=== PATIENT | male | born 1935 | race Caucasian/White ===

== ENCOUNTER 2019-08-30 12:55 | Outpatient (CLI) | payer MEDICARE, OTHER, SELFPAY ==
[2019-08-30 14:17] LABS: Basophils % 0.6 %; Eosinophils # 0.2 10^3/uL (0.0-0.8); Eosinophils % 2.6 %; Hematocrit 32.1 % (42.0-52.0); Hemoglobin 10.3 g/dL (11.7-16.6); Lymphocytes # 2.4 10^3/uL (0.8-4.8); Lymphocytes % 34.4 %; Mean Corpuscular HGB Conc 32.1 g/dL (30.0-36.0); Mean Corpuscular Hemoglobin 32.2 pg (28.0-34.0); Mean Corpuscular Volume 100.3 fL (80-94); Mean Platelet Volume 11.8 fL (7.4-10.4); Monocytes # 0.9 10^3/uL (0.2-0.9); Monocytes % 12.2 %; Neutrophils # 3.4 10^3/uL (1.8-7.7); Neutrophils % 48.6 %; Nucleated Red Blood Cells % 0 %; Platelet Count 241 10^3/cmm (130-400); Red Cell Distribution Width 12.3 % (12.1-15.1)
[2019-08-30 19:59] LABS: Alanine Aminotransferase 22 U/L (0-41); Albumin Level 4.6 g/dL (3.5-5.2); Alkaline Phosphatase 112 IU/L (40-130); Anion Gap 14.4 (5-19); Aspartate Amino Transferase 25 U/L (0-40); Blood Urea Nitrogen 50 mg/dL (8-23); Calcium 9.8 mg/dL (8.5-10.5); Carbon Dioxide 31 mmol/L (22-29); Chloride 96 mmol/L (98-107); Globulin 3.4 g/dL (1.3-4.6); Glucose 203 mg/dL (65-115); Potassium 4.4 mmol/L (3.5-5.1); Sodium 137 mmol/L (136-145); Total Bilirubin 0.2 mg/dL (0.15-1.2)
== END 2019-08-30 12:56 | disposition home or self-care (01) ==
LOC: ONCMED 12:58
PROVIDERS: Family Provider Internal Medicine; PCP Internal Medicine; Visit Provider Internal Medicine Hematology & Oncology
DX: D64.9 Anemia, unspecified (principal)
CPT/HCPCS: 36415; 80053; 85025

== ENCOUNTER 2019-08-30 12:59 | Outpatient (CLI) | payer MEDICARE, OTHER, SELFPAY ==
[2019-08-30 14:05] LABS: Creatinine Urine, Random 39 mg/dL (39-259)
[2019-08-30 14:06] LABS: Microalbum Creatinine Ratio Ur 26 mg/dL (0-20); Microalbumin Random Urine 1 ug/dL (0-20)
[2019-08-30 19:58] LABS: Albumin Level 4.5 g/dL (3.5-5.2); Anion Gap 16.3 (5-19); Blood Urea Nitrogen 50 mg/dL (8-23); Carbon Dioxide 30 mmol/L (22-29); Chloride 95 mmol/L (98-107); Glucose 197 mg/dL (65-115); Phosphorus 3.5 mg/dL (2.5-4.5); Potassium 4.3 mmol/L (3.5-5.1); Sodium 137 mmol/L (136-145)
[2019-08-30 20:35] LABS: Calcium 9.9 mg/dL (8.5-10.5); Parathyroid Hormone 77.7 pg/mL (15-65)
== END 2019-08-30 13:00 | disposition home or self-care (01) ==
LOC: LAB 13:01
PROVIDERS: Family Provider Internal Medicine; PCP Internal Medicine; Visit Provider Internal Medicine Nephrology
DX: N18.3 Chronic kidney disease, stage 3 (moderate) (principal)
CPT/HCPCS: 36415; 80069; 82044; 82310; 83970

== ENCOUNTER 2019-08-31 10:00 | Outpatient (CLI) | payer MEDICARE, OTHER, SELFPAY ==
--- NOTE | 2019-08-31 10:45 | ONC FU_ITS ---
Dr. Horne follow up note Patient: Enrique Monk Unit #: [id number]: 1935 Dicatated By: Christa Horne M.D.Date of Visit:Aug 31, 2019 Onc Med Follow-up/Prog Note History of Present Illness: This is an 83 year-old man with moderately severe anemia. He has multiple medical illnesses including hypertension, dyslipidemia, chronic kidney disease, coronary artery disease, and peripheral neuropathy. He also has chronic back pain, for which he has an implanted pain pump. In January 2016 he was hospitalized here with an acute ST elevation myocardial infarction. He developed acute renal failure with it, and he also had acute pancreatitis. He had CT evidence of a large pancreatic pseudocyst. He was transferred to the [facility] where he did undergo drainage of the pseudocyst and placement of a stent. He was readmitted to the hospital here for possible angina equivalent on 02/26/2016. A sestamibi Lexiscan showed no evidence of acute cardiac ischemia, and as such his further cardiac evaluation was deferred to outpatient management. However, in the meantime, his laboratory studies did show that he was significantly anemic with his initial CBC showing hemoglobin 7.9 g and hematocrit 24.6%. The red cell indices were slightly macrocytic. The white blood cell count was slightly elevated at 11,400, but that was significantly down compared to studies in January. The platelet count was normal at 328,000. Comprehensive metabolic profile showed elevated BUN/creatinine creatinine at 31 and 2.2 mg/dL. Albumin was low at 2.4 g/dL. Liver enzymes were normal. His B12 level was high at 1881 pg/mL. Serum iron studies showed low transferrin saturation of 12%. Ferritin was high normal at 376 ng/mL. Serum protein electrophoresis showed hypoalbuminemia and decreased total protein. There was no monoclonal protein detected. He did receive a transfusion of 1 unit of packed red blood cells on 02/27/2016. initially on 03/10/2016. CBC at that time showed hemoglobin 8.9 g with white count 12,700 and platelet count 335,000. The uncorrected reticulocyte count was 2.3%. Sedimentation rate was greater than 120 mm/hour. CRP also was elevated at 9.650 mg/dL. Chem profile showed BUN elevated at 35 mg/dL with creatinine 2.6 mg/dL, and those had increased compared to 2 weeks earlier. Alkaline phosphatase was slightly elevated 135/117 IU/L, but with normal bilirubin of 0.3 mg/dL. The other liver enzymes were normal. The serum iron was low at 22 mcg/dL with transferrin saturation 6.4%. Ferritin elevated at 483 ng/mL. A repeat protein electrophoresis showed increased alpha 1 globulin, consistent with acute phase reactive process. He was readmitted to the hospital on 03/27/2016 with acute renal failure. CT abdomen/pelvis at that time showed evidence of new acute pancolitis and loculated enhancing gas and fluid collection along the medial caudal margin of the pancreatic head. There was evidence of new acute right L3 transverse process fracture. He was found to have Clostridium difficile colitis, treated with metronidazole. He was admitted again on 04/27/2016 with persistent diarrhea and stool positive for C. difficile. He was then treated with oral vancomycin. He was then given parenteral iron replacement with infusions of Injectafer on 05/24/2016 and again on 05/31/2016. A repeat CT scan performed 05/26/16 showed new pneumobilia and air within the gallbladder lumen since 03/26/2016. There was residual but improving changes of pancreatitis and pseudocyst formation. The gallbladder was mildly hydropic with diffusely thickened wall, likely on the basis of the patient's known chronic pancreatic disease and adjacent inflammatory process. He returned to the [facility] on 06/22/2016 for removal of his pancreatic stent. A repeat CT of the abdomen/pelvis on 07/27/2016 showed decrease in size of residual pancreatic head fluid collection. There was no radiographic evidence of residual pancreatitis. There was resolved pneumobilia and gallbladder distention since 05/26/2016. His CBC at that time still showed moderately severe anemia with hemoglobin 9.4 g. The red cell indices were borderline macrocytic. His transferrin saturation was 21%. Sedimentation rate was still significantly elevated at 89 mm/hour. Came for follow-up, denies any specific complaints, no fever or chills, no nausea or vomiting, no diarrhea constipation, no jaundice, no melena hematochezia. No palpitation or shortness of breath . Medications: Acidophilus 1 Tablet Oral daily, ClonazePAM 1 Tablet Oral at bedtime, Flomax 1 (0.4 mg) Capsule Oral daily, Lasix 1 (40 mg) Tablet Oral b.i.d., Lopid 1 (600 mg) Tablet Oral b.i.d., Morphine Sulfate Microinfusion Injection Take as Directed, Nitroglycerin Tablet, sublingual Sublingual PRN, OxyCODONE HCl 1 Tablet (of 10 mg) Oral four times a day PRN, Proscar 1 (5 mg) Tablet Oral at bedtime, Xanax 1 (0.5 mg) Tablet Oral t.i.d. PRN, Zofran 1 (4 mg) Tablet Oral t.i.d. Allergies: Amitriptyline HCl, Neurontin, and TraZODone HCl. Review of Systems: Review of Systems is not available for this patient. Vital Signs: Performed on Aug 31, 2019 10:19 Height - 69.00 in Weight - 179.8 lbs (HIGH) BSA - 1.97 sq.m BMI - 26.55 Temperature - 98.4 F Pulse - 87 /min Respiration - 26 /min BP - 154/76 mm(hg) (HIGH) O2 Sat - 97 % Pain - 10 Performance Status: 1 - No physically strenuous activity, but ambulatory and able to carry out light or sedentary work (e.g. office work, light house work). (ECOG) Physical Examination: ENMT - No oral exudates, ulcers, masses, thrush or mucositis. Oropharynx clear. Tongue normal, Respiratory - Lungs are clear to auscultation without rhonchi or wheezing, Cardiovascular - Regular rate and rhythm of heart, Abdomen - Non-tender, non-distended, . Good bowel sounds. No guarding or rebound tenderness. No pulsatile masses, Extremities - no edema. Lab/Imaging: Test performed on Aug 30, 2019 08:45 Sodium 137 mmol/L Potassium 4.4 mmol/L Chloride 96 mmol/L CO2 31 mmol/L Anion Gap 14.4 BUN 50 mg/dL Creatinine 2.0 mg/dL Cr Clearance (Est) 31.7400 mL/min Glucose 203 mg/dL Calcium 9.8 mg/dL Protein, Total 8.0 g/dL Albumin 4.6 g/dL Globulin 3.4 g/dL Bilirubin, Total 0.2 mg/dL ALT (SGPT) 22 U/L AST (SGOT) 25 U/L Alkaline Phosphatase 112 IU/L WBC 7.0 10 3/uL RBC 3.20 10 6/uL HGB 10.3 g/dL HCT 32.1 % MCV 100.3 fL MCH 32.2 pg MCHC 32.1 g/dL RDW 12.3 % Platelet Count 241 10 3/cmm MPV 11.8 fL Neutrophils 3.4 10 3/uL Lymphocytes 2.4 10 3/uL Monocytes 0.9 10 3/uL Eosinophils 0.2 10 3/uL Basophils 0.0 10 3/uL Neutrophil % 48.6 % Lymphocyte % 34.4 % Monocyte % 12.2 % Eosinophil % 2.6 % Basophils % 0.6 % Test performed on Apr 20, 2019 08:47 Ferritin 840.0 ng/ml Iron 64 ug/dL % Iron Saturation 22.2 % Impression: 1. Patient with moderately severe anemia. Some component appeared to be due to iron deficiency. Some component of chronic disease anemia also was felt to be likely. Other bone marrow pathology was not excluded. 2. He developed acute renal failure and pancreatitis in association with acute ST elevation myocardial infarction in January 2016. 3. He had associated pancreatic pseudocyst, requiring percutaneous drainage and stent placement. 4. His further management was complicated by Clostridium difficile colitis, but that has improved clinically following treatment with oral vancomycin. His other medical illnesses include: 5. Hypertension. 6. Dyslipidemia. 7. GERD. 8. History of paroxysmal atrial fibrillation. 9. Benign prosthetic hypertrophy with urinary retention. 10. Chronic back pain. 11. Peripheral neuropathy. 12. He has a prior history of anemia, reportedly in association with Ducor Spotted Fever. He apparently was given parenteral iron at that time. He completed parenteral iron replacement with infusions of Injectafer on 05/24/2016 and on 05/31/2016. He has had gradual recovery from the pancreatitis and C. difficile colitis. His followup CT scan on 07/27/2016 did show further improvement, and he has continued to show gradual improvement in his performance status. Despite the parenteral iron replacement, his follow-up blood counts have continued to show moderately severe anemia, and he continues to have significantly elevated sedimentation rate. The cause for this remains uncertain. Plan: Discussed with patient regarding his labs white blood count 7 hormone 10.3 crit 32.1 platelets 241,000 CMP within normal limit except creatinine 2 compared to 2.7 in March 2019 Clinically, patient is doing well, now with well compensated mild/moderate anemia. Which appears multifactorial including due to renal insufficiency, anemia of chronic disease, considering his age underlying myelodysplasia cannot be ruled out or iron deficiency. We will continue to monitor and he will return to clinic in 4 months with CBC and iron studies, if hemoglobin drops and there is evidence of iron deficiency may consider iron supplements otherwise continue to monitor as patient is not symptomatic due to mild/moderate but stable anemia. Signed By: Christa Horne M.D. <<Signature on File>>
== END 2019-08-31 10:01 | disposition home or self-care (01) ==
LOC: ONCMED 10:07
PROVIDERS: Family Provider Internal Medicine; PCP Internal Medicine; Visit Provider Internal Medicine Hematology & Oncology
DX: D64.9 Anemia, unspecified (principal); I10 Essential (primary) hypertension; E78.5 Hyperlipidemia, unspecified; N17.9 Acute kidney failure, unspecified; I25.10 Atherosclerotic heart disease of native coronary artery without angina pectoris; G62.9 Polyneuropathy, unspecified; G89.29 Other chronic pain; M54.9 Dorsalgia, unspecified; I25.2 Old myocardial infarction; I48.0 Paroxysmal atrial fibrillation; D63.1 Anemia in chronic kidney disease; Z79.891 Long term (current) use of opiate analgesic; Z95.5 Presence of coronary angioplasty implant and graft
CPT/HCPCS: G0463

== ENCOUNTER → 2019-09-05 10:27 | Outpatient (BNVA) | payer MEDICARE, OTHER, SELFPAY | PROVIDERS: Family Provider Internal Medicine; PCP Internal Medicine; Visit Provider Specialist | DX: G89.29 Other chronic pain (principal); M54.5 Low back pain; Z46.2 Encounter for fitting and adjustment of other devices related to nervous system and special senses; M41.56 Other secondary scoliosis, lumbar region; G62.9 Polyneuropathy, unspecified; Z97.8 Presence of other specified devices; M51.36 Other intervertebral disc degeneration, lumbar region | CPT/HCPCS: 62370; 99214 ==

== ENCOUNTER 2019-09-27 09:55 | Outpatient (CLI) | payer MEDICARE, OTHER, SELFPAY ==
--- NOTE | 2019-09-27 10:08 | XR_ITS ---
WS: [id number] ABDOMEN KUB CLINICAL INFORMATION: Pain pump COMPARISON: None. FINDINGS: Left lower quadrant baclofen pain pump. Pain pump battery pack left lower quadrant appears intact. In tact catheter entering the lumbar spine at approximately L4 and extending cephalad off the field-of-v iew. Osteopenia. Pelvic phleboliths. XR/XR KUB 18034 Impression: Intact left lower quadrant pain pump.
== END 2019-09-27 09:56 | disposition home or self-care (01) ==
PROVIDERS: Family Provider Internal Medicine; PCP Internal Medicine; Visit Provider Licensed Practical Nurse
DX: Z97.8 Presence of other specified devices (principal)
CPT/HCPCS: 74018

== ENCOUNTER 2019-12-10 13:43 | Day surgery (SDC) | payer MEDICARE, OTHER, SELFPAY ==
[2019-12-07 11:43] VITALS: BMI 30.9
[2019-12-10 13:57] VITALS: BP 141/73; PULSE 74; RESP 18; TEMP 36.6; O2SAT 99
--- NOTE | 2019-12-10 14:40 | W.PM.OPSUD ---
Surgery/Procedure H&P Update DATE OF PROCEDURE: December 10, 2019 DATE H&P PERFORMED: 12/05/19 H&P UPDATE INFORMATION: I have reviewed H&P completed within last 30 days and H&P to be scanned into chart PREOP DIAGNOSIS: Pain pump end of service PRIMARY INDICATION FOR PROCEDURE: Pain pump end of service PLANNED PROCEDURE: Operation Date: 12/10/19 15:10 Proposed Procedures Replacement of subcutaneous programmable Pump, with connection to intrathecal catheter. - Tony Pedraza MD
[2019-12-10] MEDS: sodium chloride 0.9% 1,000 ML 30 ML IV (14:50)
--- NOTE | 2019-12-10 15:11 | PM.OP2 ---
Brief Operative Note: Date of procedure: 12/10/19 Pre-op diagnosis: Subcutaneous programmable pump end of service. Post-op diagnosis: same Procedure Done: Replacement of subcutaneous programmable pump, with connection to intrathecal catheter. Surgeon: Tony Pedraza Estimated blood loss (mL): 2 Complications: None. Post-op Plan: Home per Ambulatory Surgery protocol. 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
--- NOTE | 2019-12-10 15:14 | ANES.PREANE2 ---
Pre-Anesthetic Assessment Pre-Anesthetic Assessment: Height/Weight: Height 1.63 m Weight 81.647 kg Temp Pulse Resp BP Pulse Ox 97.9 F 74 18 141/73 99 12/10/19 13:57 12/10/19 13:57 12/10/19 13:57 12/10/19 13:57 12/10/19 13:57 Preop Diagnosis: Pain pump end of service Proposed Procedure: Operation Date: 12/10/19 15:10 Proposed Procedures p Pain Pump Revision(Not Applicable) - Tony Pedraza MD Familial anesthetic complications: None Was Beta Isabel taken within 24 hours: N/A Last intake: NPO > 8 hrs Social: Social History: No alcohol and No tobacco Exam: Pre-Anes Outpt Exam: alert, oriented x 3, clear to auscultation bilaterally and regular rate & rhythm Airway: Cervical ROM: WNL MP: 2 Dentition: False Pulmonary: Pulmonary: None reported CV/HEM: CV/HEM: CAD and HTN : : Chronic renal Insufficiency (CKD III) Hepatic: Comments: pacnreatitis hx GI: GI: None reported Metabolic: Metabolic: None reported Musc/skel: Musc/skel: None reported Neuropsych: Neuropsych: None reported Anesthetic Plan: ASA status: 3 Anesthesia: MAC Risk of > 500 ml blood loss (7ml/kg in children): No PFSH Anesthesia PFSH: Medical History (Updated 10/11/19 @ 09:41 by Tony Pedraza MD) Peripheral neuropathy Scoliosis of lumbar region due to degenerative disease of spine in adult Surgical History Presence of intrathecal pump 01/29/2013 Dr. Rose Pedraza replacement of subcutaneous programmable pump, connection to previous placed interthecal catheter. Family History Mother CAD (coronary artery disease) Hypertension Social History Smoking and tobacco status: former smoker Alcohol intake: never Household members: spouse Marital status: Current occupational status: retired and disabled History of recent travel: No Data Anesthesia Cardiac Studies: No Data to Display
[2019-12-10] MEDS: vancomycin 1,000 MG in sodium chloride 0.9% 250 ML 250 MG IV (15:15)
[2019-12-10 16:47] VITALS: BP 117/65; PULSE 68; RESP 18; TEMP 36.1; O2SAT 95
[2019-12-10 16:49] VITALS: BP 117/65; PULSE 66; RESP 18; O2SAT 95
--- NOTE | 2019-12-10 17:23 | PM.OP ---
Operative Report Date of procedure: December 10, 2019 Pre-op Diagnosis: Pain pump end of service Post-op diagnosis: same Procedure Done: Replacement of subcutaneous programmable pump with connection to intrathecal catheter. Implants: Medtronic SynchroMed II pump (Model# 8637-40). Specimens removed/disposition: Medtronic SynchroMed II pump Pathology: Pump for gross exam only Surgeon: Tony Pedraza Anesthesia: MAC Estimated blood loss (mL): 2 IV fluids (mL): 500 Complications: None. Condition: stable Disposition: same day Brief History: The patient is an 84-year-old male with chronic pain related primarily to peripheral neuropathy. His pain management protocol has included chronic intrathecal narcotic administration via a subcutaneous programmable pump and intrathecal catheter. The device was recently noted to be nearing battery end of service. His most recent surgery on the device was in 2012. Options were reviewed, and the patient requested to proceed with surgical replacement of the subcutaneous programmable pump to allow continuation of intrathecal drug therapy. Procedure: After routine preoperative evaluation and informed consent were obtained, the patient was taken to the Operating Room and positioned supine on the operating table. Once anesthesia was satisfactory, the prior left lower quadrant abdominal incision site was marked with a skin marker. The area was scrubbed with Betadine and prepped widely with DuraPrep. Sterile towels and drapes were applied and an [place] surgical barrier was placed. The proposed incision site was infiltrated with 1% Xylocaine with Epinephrine. A skin incision was made and carried down into the subcutaneous tissues. Self-retaining retractors were placed. The subcutaneous capsule containing the pump and pump/catheter interface was opened. No abnormal fluid collections were noted about the pump. The pump was delivered from the subcutaneous pocket. The pump - catheter interface was found to be intact. The silk tie at the catheter adapter/pump interface was divided and the catheter was released from the pump. The pump was transferred to the back table where the pump reservoir contents were aspirated. Device interrogation suggested 10 milliliters of drug was anticipated, and a compatible volume was obtained on aspiration from the explanted pump. The explanted device was a SynchroMed II, 40 milliliters reservoir pump. The aspirate from the explanted pump was transferred to a new SynchroMed-II, 40 milliliters reservoir pump after preparation of the pump in the usual manner. Aspiration of adequate fluid to clear the catheter was not obtained, and a priming bolus was performed to prime the internal pump tubing. A droplet was demonstrated at the pump port, confirming priming was complete. The pump for implant was connected to the previously implanted catheter in the usual manner. The connection site was secured with a silk tie. The connection was manipulated and found to be secure. The implanted pump was placed within the subcutaneous pocket/scar capsule in an orientation similar to the explanted device. Excess catheter was loosely coiled deep/adjacent to the device. Care was taken to avoid any catheter kinking or tension on the catheter - pump interface. The pump was anchored to fascia at an anchor loop with a single silk suture. The site was copiously irrigated with sterile saline and antibiotic irrigation. Wound closure was performed in multiple layers. The deep dermis was reapproximated with 2-0 Vicryl Plus in a simple interrupted fashion. Final skin closure was performed with 3-0 Vicryl Plus in a running subcuticular pattern. Steri-Strips were applied, and a sterile dressing was placed. The patient was transferred onto the Recovery Room cart in the supine position. The implanted pump was programmed to the settings obtained by interrogation of the explanted pump. The explanted pump contents were a mixture of morphine 40 mg/mL and Marcaine 20 mg/mL. A total of 10 milliliters of drug was aspirated and transferred to the implanted pump. Drug infusion was programmed at the preoperative dosage equivalent (simple continuous infusion of 12.52 mg/day of morphine and 6.26 mg/day of Marcaine). The patient tolerated the procedure well. All sponge, needle and instrument counts were correct at the completion of the procedure.
== END 2019-12-10 17:20 | disposition home or self-care (01) ==
PROVIDERS: PCP Internal Medicine; Visit Provider Specialist
PROC: (CPT 62350; principal; 2019-12-10 15:10)
DX: T85.695A Other mechanical complication of other nervous system device, implant or graft, initial encounter (principal); I25.10 Atherosclerotic heart disease of native coronary artery without angina pectoris; I12.9 Hypertensive chronic kidney disease with stage 1 through stage 4 chronic kidney disease, or unspecified chronic kidney disease; N18.3 Chronic kidney disease, stage 3 (moderate); Z87.891 Personal history of nicotine dependence
CPT/HCPCS: 62362; 12345; 88300; C1772; J0690; J2001; J3010; J3370; J3490; J7030; J7050

== ENCOUNTER → 2019-12-26 08:20 | Outpatient (BNVA) | payer MEDICARE, OTHER, SELFPAY | PROVIDERS: PCP Internal Medicine; Visit Provider Specialist | DX: M41.56 Other secondary scoliosis, lumbar region (principal); G62.9 Polyneuropathy, unspecified; Z97.8 Presence of other specified devices; Z87.891 Personal history of nicotine dependence | CPT/HCPCS: 99214 ==

== ENCOUNTER 2019-12-28 07:30 | Outpatient (CLI) | payer MEDICARE, OTHER, SELFPAY ==
[2019-12-28 10:32] LABS: Basophils # 0.1 10^3/uL (0.0-0.1); Basophils % 0.8 %; Eosinophils # 0.2 10^3/uL (0.0-0.8); Eosinophils % 3.1 %; Hematocrit 31.6 % (42.0-52.0); Hemoglobin 9.8 g/dL (11.7-16.6); Lymphocytes # 2.2 10^3/uL (0.8-4.8); Lymphocytes % 29.9 %; Mean Corpuscular Hemoglobin 30.1 pg (28.0-34.0); Mean Corpuscular Volume 96.9 fL (80-94); Mean Platelet Volume 11.6 fL (7.4-10.4); Monocytes # 0.9 10^3/uL (0.2-0.9); Monocytes % 12.7 %; Neutrophils # 3.8 10^3/uL (1.8-7.7); Neutrophils % 52.1 %; Nucleated Red Blood Cells % 0 %; Platelet Count 231 10^3/cmm (130-400); Red Blood Count 3.26 10^6/uL (4.1-5.3); Red Cell Distribution Width 12.2 % (12.1-15.1); White Blood Count 7.4 10^3/uL (4.0-10.0)
[2019-12-28 14:28] LABS: Iron 79 ug/dL (59-158); Total Iron Binding Capacity 272 mcg/dl; Unsaturated Iron Binding 193 ug/dL (112-347)
[2019-12-28 15:01] LABS: Ferritin 974 ng/mL (30-400)
== END 2019-12-28 07:31 | disposition home or self-care (01) ==
LOC: ONCMED 12:19
PROVIDERS: PCP Internal Medicine; Visit Provider Internal Medicine Hematology & Oncology
DX: D50.9 Iron deficiency anemia, unspecified (principal); R53.83 Other fatigue
CPT/HCPCS: 82728; 83540; 83550; 85025

== ENCOUNTER 2020-01-01 11:40 | Outpatient (CLI) | payer MEDICARE, OTHER, SELFPAY ==
--- NOTE | 2020-01-01 18:05 | ONC FU_ITS ---
Dr. Horne follow up note Patient: Enrique Monk Unit #: [id number]: 1935 Dicatated By: Christa Horne M.D.Date of Visit:Jan 01, 2020 Onc Med Follow-up/Prog Note History of Present Illness: This is an 84 year-old man with moderately severe anemia. He has multiple medical illnesses including hypertension, dyslipidemia, chronic kidney disease, coronary artery disease, and peripheral neuropathy. He also has chronic back pain, for which he has an implanted pain pump. In January 2016 he was hospitalized here with an acute ST elevation myocardial infarction. He developed acute renal failure with it, and he also had acute pancreatitis. He had CT evidence of a large pancreatic pseudocyst. He was transferred to the [facility] where he did undergo drainage of the pseudocyst and placement of a stent. He was readmitted to the hospital here for possible angina equivalent on 02/26/2016. A sestamibi Lexiscan showed no evidence of acute cardiac ischemia, and as such his further cardiac evaluation was deferred to outpatient management. However, in the meantime, his laboratory studies did show that he was significantly anemic with his initial CBC showing hemoglobin 7.9 g and hematocrit 24.6%. The red cell indices were slightly macrocytic. The white blood cell count was slightly elevated at 11,400, but that was significantly down compared to studies in January. The platelet count was normal at 328,000. Comprehensive metabolic profile showed elevated BUN/creatinine creatinine at 31 and 2.2 mg/dL. Albumin was low at 2.4 g/dL. Liver enzymes were normal. His B12 level was high at 1881 pg/mL. Serum iron studies showed low transferrin saturation of 12%. Ferritin was high normal at 376 ng/mL. Serum protein electrophoresis showed hypoalbuminemia and decreased total protein. There was no monoclonal protein detected. He did receive a transfusion of 1 unit of packed red blood cells on 02/27/2016. initially on 03/10/2016. CBC at that time showed hemoglobin 8.9 g with white count 12,700 and platelet count 335,000. The uncorrected reticulocyte count was 2.3%. Sedimentation rate was greater than 120 mm/hour. CRP also was elevated at 9.650 mg/dL. Chem profile showed BUN elevated at 35 mg/dL with creatinine 2.6 mg/dL, and those had increased compared to 2 weeks earlier. Alkaline phosphatase was slightly elevated 135/117 IU/L, but with normal bilirubin of 0.3 mg/dL. The other liver enzymes were normal. The serum iron was low at 22 mcg/dL with transferrin saturation 6.4%. Ferritin elevated at 483 ng/mL. A repeat protein electrophoresis showed increased alpha 1 globulin, consistent with acute phase reactive process. He was readmitted to the hospital on 03/27/2016 with acute renal failure. CT abdomen/pelvis at that time showed evidence of new acute pancolitis and loculated enhancing gas and fluid collection along the medial caudal margin of the pancreatic head. There was evidence of new acute right L3 transverse process fracture. He was found to have Clostridium difficile colitis, treated with metronidazole. He was admitted again on 04/27/2016 with persistent diarrhea and stool positive for C. difficile. He was then treated with oral vancomycin. He was then given parenteral iron replacement with infusions of Injectafer on 05/24/2016 and again on 05/31/2016. A repeat CT scan performed 05/26/16 showed new pneumobilia and air within the gallbladder lumen since 03/26/2016. There was residual but improving changes of pancreatitis and pseudocyst formation. The gallbladder was mildly hydropic with diffusely thickened wall, likely on the basis of the patient's known chronic pancreatic disease and adjacent inflammatory process. He returned to the [facility] on 06/22/2016 for removal of his pancreatic stent. A repeat CT of the abdomen/pelvis on 07/27/2016 showed decrease in size of residual pancreatic head fluid collection. There was no radiographic evidence of residual pancreatitis. There was resolved pneumobilia and gallbladder distention since 05/26/2016. His CBC at that time still showed moderately severe anemia with hemoglobin 9.4 g. The red cell indices were borderline macrocytic. His transferrin saturation was 21%. Sedimentation rate was still significantly elevated at 89 mm/hour. Evaluated via telemedicine, patient denies any specific complaints, no fever or chills, no nausea or vomiting, no diarrhea or constipation, no melena or hematochezia, overall feeling well with no new symptoms. Medications: Acidophilus 1 Tablet Oral daily, ClonazePAM 1 Tablet Oral at bedtime, Flomax 1 (0.4 mg) Capsule Oral daily, Lasix 1 (40 mg) Tablet Oral b.i.d., Lopid 1 (600 mg) Tablet Oral b.i.d., Morphine Sulfate Microinfusion Injection Take as Directed, Nitroglycerin Tablet, sublingual Sublingual PRN, OxyCODONE HCl 1 Tablet (of 10 mg) Oral four times a day PRN, Proscar 1 (5 mg) Tablet Oral at bedtime, Xanax 1 (0.5 mg) Tablet Oral t.i.d. PRN, Zofran 1 (4 mg) Tablet Oral t.i.d. Allergies: Amitriptyline HCl, Neurontin, and TraZODone HCl. Review of Systems: Review of Systems is not available for this patient. Vital Signs: Vitals are not available for this patient. Performance Status: 1 - No physically strenuous activity, but ambulatory and able to carry out light or sedentary work (e.g. office work, light house work). (ECOG) Physical Examination: ENMT - Patient denies any mouth sores, or thrush or jaundice, Cardiovascular - Patient denies any tachycardia or palpitation, Patient denies any shortness of breath or wheezing, Abdomen - Patient denies any abdominal pain or fullness, Extremities - Patient complaining of mild bilateral Lower extremity edema. Lab/Imaging: Test performed on Dec 28, 2019 07:30 Ferritin 974 ng/mL Iron 79 mcg/dL Iron Binding Capacity (TIBC) 272 mcg/dl % Iron Saturation 29.0 % UIBC 193 mcg/dL WBC 7.4 10 3/uL RBC 3.26 10 6/uL HGB 9.8 g/dL HCT 31.6 % MCV 96.9 fL MCH 30.1 pg MCHC 31.0 g/dL RDW 12.2 % Platelet Count 231 10 3/cmm MPV 11.6 fL Neutrophils 3.8 10 3/uL Lymphocytes 2.2 10 3/uL Monocytes 0.9 10 3/uL Eosinophils 0.2 10 3/uL Basophils 0.1 10 3/uL Neutrophil % 52.1 % Lymphocyte % 29.9 % Monocyte % 12.7 % Eosinophil % 3.1 % Basophils % 0.8 % Test performed on Aug 30, 2019 08:45 Sodium 137 mmol/L Potassium 4.4 mmol/L Chloride 96 mmol/L CO2 31 mmol/L Anion Gap 14.4 BUN 50 mg/dL Creatinine 2.0 mg/dL Cr Clearance (Est) 31.7400 mL/min Glucose 203 mg/dL Calcium 9.8 mg/dL Protein, Total 8.0 g/dL Albumin 4.6 g/dL Globulin 3.4 g/dL Bilirubin, Total 0.2 mg/dL ALT (SGPT) 22 U/L AST (SGOT) 25 U/L Alkaline Phosphatase 112 IU/L Impression: 1. Patient with moderately severe anemia. Some component appeared to be due to iron deficiency. Some component of chronic disease anemia also was felt to be likely. Other bone marrow pathology was not excluded. 2. He developed acute renal failure and pancreatitis in association with acute ST elevation myocardial infarction in January 2016. 3. He had associated pancreatic pseudocyst, requiring percutaneous drainage and stent placement. 4. His further management was complicated by Clostridium difficile colitis, but that has improved clinically following treatment with oral vancomycin. His other medical illnesses include: 5. Hypertension. 6. Dyslipidemia. 7. GERD. 8. History of paroxysmal atrial fibrillation. 9. Benign prosthetic hypertrophy with urinary retention. 10. Chronic back pain. 11. Peripheral neuropathy. 12. He has a prior history of anemia, reportedly in association with [place] Spotted Fever. He apparently was given parenteral iron at that time. He completed parenteral iron replacement with infusions of Injectafer on 05/24/2016 and on 05/31/2016. He has had gradual recovery from the pancreatitis and C. difficile colitis. His followup CT scan on 07/27/2016 did show further improvement, and he has continued to show gradual improvement in his performance status. Despite the parenteral iron replacement, his follow-up blood counts have continued to show moderately severe anemia, and he continues to have significantly elevated sedimentation rate. The cause for this remains uncertain. Plan: Discussed with patient via telemedicine, regarding his labs white blood count 7.4 hemoglobin 9.8 g compared to 10.3 g on August 30, 2019 and hematocrit 31.6 platelets 231,000 iron saturation 29% ferritin 974, iron 79, TIBC 272 Clinically, patient is doing well with no new signs symptoms, follow-up CBC showed well compensated mildly progressive moderate normocytic anemia, etiology multifactorial including considering his age underlying myelodysplasia cannot be ruled out along with anemia of chronic renal disease, patient has chronic renal insufficiency as per family he is scheduled to see nephrology next month. Clinically patient has no new symptoms and hemoglobin is somewhat stable and iron studies within normal range, will continue to monitor and see him back in 3 months with CBC and CMP. Signed By: Christa Horne M.D. <<Signature on File>>
== END 2020-01-01 11:41 | disposition home or self-care (01) ==
LOC: ONCMED 11:52
PROVIDERS: PCP Internal Medicine; Visit Provider Internal Medicine Hematology & Oncology
DX: D64.9 Anemia, unspecified (principal); I12.9 Hypertensive chronic kidney disease with stage 1 through stage 4 chronic kidney disease, or unspecified chronic kidney disease; N18.9 Chronic kidney disease, unspecified; R70.0 Elevated erythrocyte sedimentation rate; I25.2 Old myocardial infarction; I10 Essential (primary) hypertension; E78.5 Hyperlipidemia, unspecified; K21.9 Gastro-esophageal reflux disease without esophagitis; I48.0 Paroxysmal atrial fibrillation; M54.9 Dorsalgia, unspecified; G62.9 Polyneuropathy, unspecified

== ENCOUNTER 2020-02-19 08:53 | Outpatient (CLI) | payer MEDICARE, OTHER, SELFPAY ==
[2020-02-19 09:48] LABS: Basophils # 0.1 10^3/uL (0.0-0.1); Basophils % 0.9 %; Eosinophils # 0.2 10^3/uL (0.0-0.8); Eosinophils % 3.2 %; Hematocrit 32.5 % (42.0-52.0); Hemoglobin 10.2 g/dL (11.7-16.6); Lymphocytes # 1.9 10^3/uL (0.8-4.8); Lymphocytes % 27.2 %; Mean Corpuscular HGB Conc 31.4 g/dL (30.0-36.0); Mean Corpuscular Hemoglobin 30.2 pg (28.0-34.0); Mean Corpuscular Volume 96.2 fL (80-94); Mean Platelet Volume 11.2 fL (7.4-10.4); Monocytes # 0.9 10^3/uL (0.2-0.9); Monocytes % 12.5 %; Neutrophils # 3.75 10^3/uL (1.8-7.7); Neutrophils % 55.3 %; Nucleated Red Blood Cells % 0 %; Platelet Count 201 10^3/cmm (130-400); Red Blood Count 3.38 10^6/uL (4.1-5.3); Red Cell Distribution Width 12.3 % (12.1-15.1); White Blood Count 6.8 10^3/uL (4.0-10.0)
[2020-02-19 09:59] LABS: Creatinine Urine, Random 59 mg/dL (39-259)
[2020-02-19 10:06] LABS: Microalbum Creatinine Ratio Ur 17 mg/dL (0-20); Microalbumin Random Urine 1 ug/dL (0-20)
[2020-02-19 10:08] LABS: Calcium 9.6 mg/dL (8.5-10.5); Parathyroid Hormone 109.7 pg/mL (15-65)
[2020-02-19 10:14] LABS: Albumin Level 4.6 g/dL (3.5-5.2); Anion Gap 17.5 (5-19); Blood Urea Nitrogen 56 mg/dL (8-23); Carbon Dioxide 28 mmol/L (22-29); Chloride 96 mmol/L (98-107); Glucose 131 mg/dL (65-115); Phosphorus 4.3 mg/dL (2.5-4.5); Potassium 4.5 mmol/L (3.5-5.1); Sodium 137 mmol/L (136-145)
[2020-02-19 10:43] LABS: 25 Hydroxy Vitamin D 50 ng/mL (30-100)
== END 2020-02-19 08:54 | disposition home or self-care (01) ==
LOC: LAB 09:01
PROVIDERS: PCP Internal Medicine; Visit Provider Internal Medicine Nephrology
DX: N18.3 Chronic kidney disease, stage 3 (moderate) (principal)
CPT/HCPCS: 80069; 82044; 82306; 82310; 83970; 85025

== ENCOUNTER 2020-04-18 07:25 | Outpatient (CLI) | payer MEDICARE, OTHER, SELFPAY ==
[2020-04-18 10:26] LABS: Basophils # 0.1 10^3/uL (0.0-0.1); Basophils % 0.7 %; Eosinophils # 0.2 10^3/uL (0.0-0.8); Eosinophils % 2.4 %; Hematocrit 32.7 % (42.0-52.0); Hemoglobin 10.1 g/dL (11.7-16.6); Lymphocytes # 2.2 10^3/uL (0.8-4.8); Mean Corpuscular HGB Conc 30.9 g/dL (30.0-36.0); Mean Corpuscular Hemoglobin 30.3 pg (28.0-34.0); Mean Corpuscular Volume 98.2 fL (80-94); Mean Platelet Volume 11.4 fL (7.4-10.4); Monocytes % 11.5 %; Neutrophils # 4.96 10^3/uL (1.8-7.7); Neutrophils % 57.9 %; Nucleated Red Blood Cells % 0 %; Platelet Count 260 10^3/cmm (130-400); Red Blood Count 3.33 10^6/uL (4.1-5.3); Red Cell Distribution Width 12.3 % (12.1-15.1); White Blood Count 8.6 10^3/uL (4.0-10.0)
== END 2020-04-18 07:26 | disposition home or self-care (01) ==
LOC: ONCMED 10:10
PROVIDERS: PCP Internal Medicine; Visit Provider Internal Medicine Hematology & Oncology
DX: D50.9 Iron deficiency anemia, unspecified (principal)
CPT/HCPCS: 36415; 85025

== ENCOUNTER → 2020-04-22 08:22 | Outpatient (BNVA) | payer MEDICARE, OTHER, SELFPAY | PROVIDERS: PCP Internal Medicine; Visit Provider Specialist | DX: M41.56 Other secondary scoliosis, lumbar region (principal); G62.9 Polyneuropathy, unspecified; Z87.891 Personal history of nicotine dependence; Z97.8 Presence of other specified devices | CPT/HCPCS: 62370; 99213 ==

== ENCOUNTER 2020-04-23 05:48 | Outpatient (CLI) | payer MEDICARE, OTHER, SELFPAY ==
--- NOTE | 2020-04-23 14:26 | ONC FU_ITS ---
Dr. Horne follow up note Patient: Enrique Monk Unit #: [id number]: [id number] Dicatated By: Christa Horne M.D.Date of Visit:Apr 23, 2020 Telehealth Progress Note The patient has been informed that the visit may not be secure and acknowledged the information. I have explained the option of participating in a telephone or video visit during the [facility] emergency to the patient. After being given an opportunity to ask questions about and discuss this type of visit, the patient verbally consented to proceeding with the telephone/video visit. the patient understands that this service replaces an office visit and they may be billed and /or responsible for any applicable copayments History of Present Illness: This is an 84 year-old man with moderately severe anemia. He has multiple medical illnesses including hypertension, dyslipidemia, chronic kidney disease, coronary artery disease, and peripheral neuropathy. He also has chronic back pain, for which he has an implanted pain pump. In January 2016 he was hospitalized here with an acute ST elevation myocardial infarction. He developed acute renal failure with it, and he also had acute pancreatitis. He had CT evidence of a large pancreatic pseudocyst. He was transferred to the [facility] where he did undergo drainage of the pseudocyst and placement of a stent. He was readmitted to the hospital here for possible angina equivalent on 02/26/2016. A sestamibi Lexiscan showed no evidence of acute cardiac ischemia, and as such his further cardiac evaluation was deferred to outpatient management. However, in the meantime, his laboratory studies did show that he was significantly anemic with his initial CBC showing hemoglobin 7.9 g and hematocrit 24.6%. The red cell indices were slightly macrocytic. The white blood cell count was slightly elevated at 11,400, but that was significantly down compared to studies in January. The platelet count was normal at 328,000. Comprehensive metabolic profile showed elevated BUN/creatinine creatinine at 31 and 2.2 mg/dL. Albumin was low at 2.4 g/dL. Liver enzymes were normal. His B12 level was high at 1881 pg/mL. Serum iron studies showed low transferrin saturation of 12%. Ferritin was high normal at 376 ng/mL. Serum protein electrophoresis showed hypoalbuminemia and decreased total protein. There was no monoclonal protein detected. He did receive a transfusion of 1 unit of packed red blood cells on 02/27/2016. initially on 03/10/2016. CBC at that time showed hemoglobin 8.9 g with white count 12,700 and platelet count 335,000. The uncorrected reticulocyte count was 2.3%. Sedimentation rate was greater than 120 mm/hour. CRP also was elevated at 9.650 mg/dL. Chem profile showed BUN elevated at 35 mg/dL with creatinine 2.6 mg/dL, and those had increased compared to 2 weeks earlier. Alkaline phosphatase was slightly elevated 135/117 IU/L, but with normal bilirubin of 0.3 mg/dL. The other liver enzymes were normal. The serum iron was low at 22 mcg/dL with transferrin saturation 6.4%. Ferritin elevated at 483 ng/mL. A repeat protein electrophoresis showed increased alpha 1 globulin, consistent with acute phase reactive process. He was readmitted to the hospital on 03/27/2016 with acute renal failure. CT abdomen/pelvis at that time showed evidence of new acute pancolitis and loculated enhancing gas and fluid collection along the medial caudal margin of the pancreatic head. There was evidence of new acute right L3 transverse process fracture. He was found to have Clostridium difficile colitis, treated with metronidazole. He was admitted again on 04/27/2016 with persistent diarrhea and stool positive for C. difficile. He was then treated with oral vancomycin. He was then given parenteral iron replacement with infusions of Injectafer on 05/24/2016 and again on 05/31/2016. A repeat CT scan performed 05/26/16 showed new pneumobilia and air within the gallbladder lumen since 03/26/2016. There was residual but improving changes of pancreatitis and pseudocyst formation. The gallbladder was mildly hydropic with diffusely thickened wall, likely on the basis of the patient's known chronic pancreatic disease and adjacent inflammatory process. He returned to the [facility] on 06/22/2016 for removal of his pancreatic stent. A repeat CT of the abdomen/pelvis on 07/27/2016 showed decrease in size of residual pancreatic head fluid collection. There was no radiographic evidence of residual pancreatitis. There was resolved pneumobilia and gallbladder distention since 05/26/2016. His CBC at that time still showed moderately severe anemia with hemoglobin 9.4 g. The red cell indices were borderline macrocytic. His transferrin saturation was 21%. Sedimentation rate was still significantly elevated at 89 mm/hour. Evaluated via telemedicine, Denies any specific complaints except chronic neuropathy pain which he has for 30 years. No melena or hematochezia, no nausea or vomiting, no diarrhea or constipation, no fever chills, no hemoptysis or hematemesis, no shortness of breath at chest pain at rest. Overall feeling well no new symptoms Medications: Acidophilus 1 Tablet Oral daily, ClonazePAM 1 Tablet Oral at bedtime, Flomax 1 (0.4 mg) Capsule Oral daily, Lasix 1 (40 mg) Tablet Oral b.i.d., Lopid 1 (600 mg) Tablet Oral b.i.d., Morphine Sulfate Microinfusion Injection Take as Directed, Nitroglycerin Tablet, sublingual Sublingual PRN, OxyCODONE HCl 1 Tablet (of 10 mg) Oral four times a day PRN, Proscar 1 (5 mg) Tablet Oral at bedtime, Xanax 1 (0.5 mg) Tablet Oral t.i.d. PRN, Zofran 1 (4 mg) Tablet Oral t.i.d. Allergies: Amitriptyline HCl, Neurontin, and TraZODone HCl. Review of Systems: Review of Systems is not available for this patient. Vital Signs: Vitals are not available for this patient. Performance Status: 1 - No physically strenuous activity, but ambulatory and able to carry out light or sedentary work (e.g. office work, light house work). (ECOG) Physical Examination: ENMT - Denies any mouth sores or jaundice, Respiratory - Denies any shortness of breath or wheezing, Cardiovascular - Denies any chest pain or palpitation, Abdomen - Denies any abdominal pain, Extremities - Denies any edema. Lab/Imaging: Test performed on Dec 28, 2019 07:30 Ferritin 974 ng/mL Iron 79 mcg/dL Iron Binding Capacity (TIBC) 272 mcg/dl % Iron Saturation 29.0 % UIBC 193 mcg/dL WBC 7.4 10 3/uL RBC 3.26 10 6/uL HGB 9.8 g/dL HCT 31.6 % MCV 96.9 fL MCH 30.1 pg MCHC 31.0 g/dL RDW 12.2 % Platelet Count 231 10 3/cmm MPV 11.6 fL Neutrophils 3.8 10 3/uL Lymphocytes 2.2 10 3/uL Monocytes 0.9 10 3/uL Eosinophils 0.2 10 3/uL Basophils 0.1 10 3/uL Neutrophil % 52.1 % Lymphocyte % 29.9 % Monocyte % 12.7 % Eosinophil % 3.1 % Basophils % 0.8 % Impression: 1. Patient with moderately severe anemia. Some component appeared to be due to iron deficiency. Some component of chronic disease anemia also was felt to be likely. Other bone marrow pathology was not excluded. 2. He developed acute renal failure and pancreatitis in association with acute ST elevation myocardial infarction in January 2016. 3. He had associated pancreatic pseudocyst, requiring percutaneous drainage and stent placement. 4. His further management was complicated by Clostridium difficile colitis, but that has improved clinically following treatment with oral vancomycin. His other medical illnesses include: 5. Hypertension. 6. Dyslipidemia. 7. GERD. 8. History of paroxysmal atrial fibrillation. 9. Benign prosthetic hypertrophy with urinary retention. 10. Chronic back pain. 11. Peripheral neuropathy. 12. He has a prior history of anemia, reportedly in association with [place] Spotted Fever. He apparently was given parenteral iron at that time. He completed parenteral iron replacement with infusions of Injectafer on 05/24/2016 and on 05/31/2016. He has had gradual recovery from the pancreatitis and C. difficile colitis. His followup CT scan on 07/27/2016 did show further improvement, and he has continued to show gradual improvement in his performance status. Despite the parenteral iron replacement, his follow-up blood counts have continued to show moderately severe anemia, and he continues to have significantly elevated sedimentation rate. The cause for this remains uncertain. Plan: Discussed with patient regarding his labs white blood count 8.6 hemoglobin 10.1 hematocrit 32.7 platelets 260,000 Clinically, patient doing well with no new signs symptoms patient has well compensated mild/moderate anemia but stable we will continue to monitor and check his labs/CBC in 3 months Signed By: Christa Horne M.D. <<Signature on File>>
== END 2020-04-23 05:49 | disposition home or self-care (01) ==
LOC: ONCMED 05:50
PROVIDERS: PCP Internal Medicine; Visit Provider Internal Medicine Hematology & Oncology
DX: D64.9 Anemia, unspecified (principal); I10 Essential (primary) hypertension; E78.5 Hyperlipidemia, unspecified; K21.9 Gastro-esophageal reflux disease without esophagitis; Z86.79 Personal history of other diseases of the circulatory system; N40.1 Benign prostatic hyperplasia with lower urinary tract symptoms; R33.8 Other retention of urine; G89.29 Other chronic pain; M54.9 Dorsalgia, unspecified; G62.9 Polyneuropathy, unspecified; Z86.19 Personal history of other infectious and parasitic diseases

== ENCOUNTER 2020-07-16 07:42 | Outpatient (CLI) | payer MEDICARE, OTHER, SELFPAY ==
[2020-07-16 11:55] LABS: Basophils % 0.6 %; Eosinophils # 0.2 10^3/uL (0.0-0.8); Eosinophils % 3.5 %; Hematocrit 31.2 % (42.0-52.0); Hemoglobin 9.8 g/dL (11.7-16.6); Lymphocytes % 31.2 %; Mean Corpuscular HGB Conc 31.4 g/dL (30.0-36.0); Mean Corpuscular Hemoglobin 30.7 pg (28.0-34.0); Mean Corpuscular Volume 97.8 fL (80-94); Mean Platelet Volume 11.6 fL (7.4-10.4); Neutrophils # 3.04 10^3/uL (1.8-7.7); Neutrophils % 48.2 %; Nucleated Red Blood Cells % 0 %; Platelet Count 204 10^3/cmm (130-400); Red Blood Count 3.19 10^6/uL (4.1-5.3); Red Cell Distribution Width 11.9 % (12.1-15.1); White Blood Count 6.3 10^3/uL (4.0-10.0)
== END 2020-07-16 07:43 | disposition home or self-care (01) ==
LOC: ONCMED 14:11
PROVIDERS: PCP Internal Medicine; Visit Provider Internal Medicine Hematology & Oncology
DX: D50.9 Iron deficiency anemia, unspecified (principal)
CPT/HCPCS: 85025

== ENCOUNTER 2020-07-23 05:54 | Outpatient (CLI) | payer MEDICARE, OTHER, SELFPAY ==
--- NOTE | 2020-07-23 16:08 | ONC FU_ITS ---
Dr. Horne follow up note Patient: Enrique Monk Unit #: [id number]: 1935 Dicatated By: Christa Horne M.D.Date of Visit:Jul 23, 2020 Onc Med Follow-up/Prog Note History of Present Illness: This is an 84 year-old man with moderately severe anemia. He has multiple medical illnesses including hypertension, dyslipidemia, chronic kidney disease, coronary artery disease, and peripheral neuropathy. He also has chronic back pain, for which he has an implanted pain pump. In January 2016 he was hospitalized here with an acute ST elevation myocardial infarction. He developed acute renal failure with it, and he also had acute pancreatitis. He had CT evidence of a large pancreatic pseudocyst. He was transferred to the [facility] where he did undergo drainage of the pseudocyst and placement of a stent. He was readmitted to the hospital here for possible angina equivalent on 02/26/2016. A sestamibi Lexiscan showed no evidence of acute cardiac ischemia, and as such his further cardiac evaluation was deferred to outpatient management. However, in the meantime, his laboratory studies did show that he was significantly anemic with his initial CBC showing hemoglobin 7.9 g and hematocrit 24.6%. The red cell indices were slightly macrocytic. The white blood cell count was slightly elevated at 11,400, but that was significantly down compared to studies in January. The platelet count was normal at 328,000. Comprehensive metabolic profile showed elevated BUN/creatinine creatinine at 31 and 2.2 mg/dL. Albumin was low at 2.4 g/dL. Liver enzymes were normal. His B12 level was high at 1881 pg/mL. Serum iron studies showed low transferrin saturation of 12%. Ferritin was high normal at 376 ng/mL. Serum protein electrophoresis showed hypoalbuminemia and decreased total protein. There was no monoclonal protein detected. He did receive a transfusion of 1 unit of packed red blood cells on 02/27/2016. initially on 03/10/2016. CBC at that time showed hemoglobin 8.9 g with white count 12,700 and platelet count 335,000. The uncorrected reticulocyte count was 2.3%. Sedimentation rate was greater than 120 mm/hour. CRP also was elevated at 9.650 mg/dL. Chem profile showed BUN elevated at 35 mg/dL with creatinine 2.6 mg/dL, and those had increased compared to 2 weeks earlier. Alkaline phosphatase was slightly elevated 135/117 IU/L, but with normal bilirubin of 0.3 mg/dL. The other liver enzymes were normal. The serum iron was low at 22 mcg/dL with transferrin saturation 6.4%. Ferritin elevated at 483 ng/mL. A repeat protein electrophoresis showed increased alpha 1 globulin, consistent with acute phase reactive process. He was readmitted to the hospital on 03/27/2016 with acute renal failure. CT abdomen/pelvis at that time showed evidence of new acute pancolitis and loculated enhancing gas and fluid collection along the medial caudal margin of the pancreatic head. There was evidence of new acute right L3 transverse process fracture. He was found to have Clostridium difficile colitis, treated with metronidazole. He was admitted again on 04/27/2016 with persistent diarrhea and stool positive for C. difficile. He was then treated with oral vancomycin. He was then given parenteral iron replacement with infusions of Injectafer on 05/24/2016 and again on 05/31/2016. A repeat CT scan performed 05/26/16 showed new pneumobilia and air within the gallbladder lumen since 03/26/2016. There was residual but improving changes of pancreatitis and pseudocyst formation. The gallbladder was mildly hydropic with diffusely thickened wall, likely on the basis of the patient's known chronic pancreatic disease and adjacent inflammatory process. He returned to the [facility] on 06/22/2016 for removal of his pancreatic stent. A repeat CT of the abdomen/pelvis on 07/27/2016 showed decrease in size of residual pancreatic head fluid collection. There was no radiographic evidence of residual pancreatitis. There was resolved pneumobilia and gallbladder distention since 05/26/2016. His CBC at that time still showed moderately severe anemia with hemoglobin 9.4 g. The red cell indices were borderline macrocytic. His transferrin saturation was 21%. Sedimentation rate was still significantly elevated at 89 mm/hour. Evaluated via telemedicineDenies any specific complaints, denies any shortness of breath or palpitation at rest denies any melena or hematochezia, denies any hemoptysis or hematemesis, denies any jaundice, appetite is good, Medications: Acidophilus 1 Tablet Oral daily, ClonazePAM 1 Tablet Oral at bedtime, Flomax 1 (0.4 mg) Capsule Oral daily, Lasix 1 (40 mg) Tablet Oral b.i.d., Lopid 1 (600 mg) Tablet Oral b.i.d., Morphine Sulfate Microinfusion Injection Take as Directed, Nitroglycerin Tablet, sublingual Sublingual PRN, OxyCODONE HCl 1 Tablet (of 10 mg) Oral four times a day PRN, Proscar 1 (5 mg) Tablet Oral at bedtime, Xanax 1 (0.5 mg) Tablet Oral t.i.d. PRN, Zofran 1 (4 mg) Tablet Oral t.i.d. Allergies: Amitriptyline HCl, Neurontin, and TraZODone HCl. Review of Systems: Review of Systems is not available for this patient. Vital Signs: Performed on Jul 23, 2020 15:53 Height - 69.00 in Pulse - 82 /min Respiration - 16 /min BP - 132/72 mm(hg) Performance Status: 2 - Ambulatory/capable of all self-care, unable to perform any work activities. Up and about more than 50% of waking hours. (ECOG) Physical Examination: ENMT - Patient denies any mouth sores, denies any jaundice ,denies any thrush, Respiratory - Denies any shortness of breath or wheezing, Cardiovascular - Denies any palpitation, Abdomen - Denies any abdominal pain or fullness, Extremities - Denies any leg swelling. Lab/Imaging: Test performed on Jul 16, 2020 07:42 WBC 6.3 10 3/uL RBC 3.19 10 6/uL HGB 9.8 g/dL HCT 31.2 % MCV 97.8 fL MCH 30.7 pg MCHC 31.4 g/dL RDW 11.9 % Platelet Count 204 10 3/cmm MPV 11.6 fL Neutrophils 3.04 10 3/uL Lymphocytes 2.0 10 3/uL Monocytes 1.0 10 3/uL Eosinophils 0.2 10 3/uL Basophils 0.0 10 3/uL Neutrophil % 48.2 % Lymphocyte % 31.2 % Monocyte % 16.0 % Eosinophil % 3.5 % Basophils % 0.6 % NRBC % 0 % Impression: 1. Patient with moderately severe anemia. Some component appeared to be due to iron deficiency. Some component of chronic disease anemia also was felt to be likely. Other bone marrow pathology was not excluded. 2. He developed acute renal failure and pancreatitis in association with acute ST elevation myocardial infarction in January 2016. 3. He had associated pancreatic pseudocyst, requiring percutaneous drainage and stent placement. 4. His further management was complicated by Clostridium difficile colitis, but that has improved clinically following treatment with oral vancomycin. His other medical illnesses include: 5. Hypertension. 6. Dyslipidemia. 7. GERD. 8. History of paroxysmal atrial fibrillation. 9. Benign prosthetic hypertrophy with urinary retention. 10. Chronic back pain. 11. Peripheral neuropathy. 12. He has a prior history of anemia, reportedly in association with [place] Spotted Fever. He apparently was given parenteral iron at that time. He completed parenteral iron replacement with infusions of Injectafer on 05/24/2016 and on 05/31/2016. He has had gradual recovery from the pancreatitis and C. difficile colitis. His followup CT scan on 07/27/2016 did show further improvement, and he has continued to show gradual improvement in his performance status. Despite the parenteral iron replacement, his follow-up blood counts have continued to show moderately severe anemia, and he continues to have significantly elevated sedimentation rate. The cause for this remains uncertain. Plan: Discussed with patient and family via telemed about his labs white blood count 6.3 hemoglobin 9.8 hematocrit 31.2 platelets 204,000 Clinically, patient is doing reasonably well with no new signs symptoms, his follow-up CBC shows persistent mild/moderate anemia but well compensated, patient has no new signs symptoms, clinically appears, considering his age patient may have underlying myelodysplasia, discussed about bone marrow evaluation patient and family declined rather prefer observation as patient has no new symptoms due to persistent but stable mild/moderate anemia., Will repeat CBC and evaluate in 3 months Signed By: Christa Horne M.D. <<Signature on File>>
== END 2020-07-23 05:55 | disposition home or self-care (01) ==
LOC: ONCMED 05:54
PROVIDERS: PCP Internal Medicine; Visit Provider Internal Medicine Hematology & Oncology
DX: D64.9 Anemia, unspecified (principal); R70.0 Elevated erythrocyte sedimentation rate; I12.9 Hypertensive chronic kidney disease with stage 1 through stage 4 chronic kidney disease, or unspecified chronic kidney disease; N18.9 Chronic kidney disease, unspecified; D63.1 Anemia in chronic kidney disease; E78.5 Hyperlipidemia, unspecified; K21.9 Gastro-esophageal reflux disease without esophagitis; Z86.79 Personal history of other diseases of the circulatory system; N40.1 Benign prostatic hyperplasia with lower urinary tract symptoms; R33.8 Other retention of urine; G62.9 Polyneuropathy, unspecified; G89.29 Other chronic pain
CPT/HCPCS: G0463

== ENCOUNTER → 2020-08-06 09:33 | Outpatient (BNVA) | payer MEDICARE, OTHER, SELFPAY | PROVIDERS: PCP Internal Medicine; Visit Provider Specialist | DX: M41.56 Other secondary scoliosis, lumbar region (principal); G62.9 Polyneuropathy, unspecified; Z97.8 Presence of other specified devices; Z87.891 Personal history of nicotine dependence | CPT/HCPCS: 62370; 99213 ==

== ENCOUNTER 2020-10-21 09:10 | Outpatient (CLI) | payer MEDICARE, OTHER, SELFPAY ==
[2020-10-21 10:52] LABS: Basophils # 0.1 10^3/uL (0.0-0.1); Basophils % 0.7 %; Eosinophils # 0.3 10^3/uL (0.0-0.8); Eosinophils % 4.4 %; Hemoglobin 9.8 g/dL (11.7-16.6); Lymphocytes # 2.1 10^3/uL (0.8-4.8); Lymphocytes % 29.3 %; Mean Corpuscular HGB Conc 30.6 g/dL (30.0-36.0); Mean Corpuscular Hemoglobin 30.7 pg (28.0-34.0); Mean Corpuscular Volume 100.3 fL (80-94); Mean Platelet Volume 11.2 fL (7.4-10.4); Monocytes # 0.8 10^3/uL (0.2-0.9); Monocytes % 11.6 %; Neutrophils % 52.9 %; Nucleated Red Blood Cells % 0 %; Platelet Count 223 10^3/cmm (130-400); Red Blood Count 3.19 10^6/uL (4.1-5.3); Red Cell Distribution Width 12.9 % (12.1-15.1)
== END 2020-10-21 09:11 | disposition home or self-care (01) ==
LOC: ONCMED 10-23 08:59
PROVIDERS: PCP Internal Medicine; Visit Provider Internal Medicine Hematology & Oncology
DX: D64.9 Anemia, unspecified (principal)
CPT/HCPCS: 85025

== ENCOUNTER 2020-10-22 05:59 | Outpatient (CLI) | payer MEDICARE, OTHER, SELFPAY ==
--- NOTE | 2020-10-22 15:46 | ONC FU_ITS ---
Dr. Horne follow up note Patient: Enrique Monk Unit #: [id number]: 1935 Dicatated By: Christa Horne M.D.Date of Visit:Oct 22, 2020 Onc Med Follow-up/Prog Note History of Present Illness: This is an 85 year-old man with moderately severe anemia. He has multiple medical illnesses including hypertension, dyslipidemia, chronic kidney disease, coronary artery disease, and peripheral neuropathy. He also has chronic back pain, for which he has an implanted pain pump. In January 2016 he was hospitalized here with an acute ST elevation myocardial infarction. He developed acute renal failure with it, and he also had acute pancreatitis. He had CT evidence of a large pancreatic pseudocyst. He was transferred to the [facility] where he did undergo drainage of the pseudocyst and placement of a stent. He was readmitted to the hospital here for possible angina equivalent on 02/26/2016. A sestamibi Lexiscan showed no evidence of acute cardiac ischemia, and as such his further cardiac evaluation was deferred to outpatient management. However, in the meantime, his laboratory studies did show that he was significantly anemic with his initial CBC showing hemoglobin 7.9 g and hematocrit 24.6%. The red cell indices were slightly macrocytic. The white blood cell count was slightly elevated at 11,400, but that was significantly down compared to studies in January. The platelet count was normal at 328,000. Comprehensive metabolic profile showed elevated BUN/creatinine creatinine at 31 and 2.2 mg/dL. Albumin was low at 2.4 g/dL. Liver enzymes were normal. His B12 level was high at 1881 pg/mL. Serum iron studies showed low transferrin saturation of 12%. Ferritin was high normal at 376 ng/mL. Serum protein electrophoresis showed hypoalbuminemia and decreased total protein. There was no monoclonal protein detected. He did receive a transfusion of 1 unit of packed red blood cells on 02/27/2016. initially on 03/10/2016. CBC at that time showed hemoglobin 8.9 g with white count 12,700 and platelet count 335,000. The uncorrected reticulocyte count was 2.3%. Sedimentation rate was greater than 120 mm/hour. CRP also was elevated at 9.650 mg/dL. Chem profile showed BUN elevated at 35 mg/dL with creatinine 2.6 mg/dL, and those had increased compared to 2 weeks earlier. Alkaline phosphatase was slightly elevated 135/117 IU/L, but with normal bilirubin of 0.3 mg/dL. The other liver enzymes were normal. The serum iron was low at 22 mcg/dL with transferrin saturation 6.4%. Ferritin elevated at 483 ng/mL. A repeat protein electrophoresis showed increased alpha 1 globulin, consistent with acute phase reactive process. He was readmitted to the hospital on 03/27/2016 with acute renal failure. CT abdomen/pelvis at that time showed evidence of new acute pancolitis and loculated enhancing gas and fluid collection along the medial caudal margin of the pancreatic head. There was evidence of new acute right L3 transverse process fracture. He was found to have Clostridium difficile colitis, treated with metronidazole. He was admitted again on 04/27/2016 with persistent diarrhea and stool positive for C. difficile. He was then treated with oral vancomycin. He was then given parenteral iron replacement with infusions of Injectafer on 05/24/2016 and again on 05/31/2016. A repeat CT scan performed 05/26/16 showed new pneumobilia and air within the gallbladder lumen since 03/26/2016. There was residual but improving changes of pancreatitis and pseudocyst formation. The gallbladder was mildly hydropic with diffusely thickened wall, likely on the basis of the patient's known chronic pancreatic disease and adjacent inflammatory process. He returned to the [facility] on 06/22/2016 for removal of his pancreatic stent. A repeat CT of the abdomen/pelvis on 07/27/2016 showed decrease in size of residual pancreatic head fluid collection. There was no radiographic evidence of residual pancreatitis. There was resolved pneumobilia and gallbladder distention since 05/26/2016. His CBC at that time still showed moderately severe anemia with hemoglobin 9.4 g. The red cell indices were borderline macrocytic. His transferrin saturation was 21%. Sedimentation rate was still significantly elevated at 89 mm/hour. Evaluated via telemedicine, Patient denies any specific complaints, no shortness of breath or palpitation, no melena or hematochezia, no hemoptysis or hematemesis, no jaundice patient is taking oral iron tablets, causing indigestion and constipation Medications: Acidophilus 1 Tablet Oral daily, ClonazePAM 1 Tablet Oral at bedtime, Flomax 1 (0.4 mg) Capsule Oral daily, Lasix 1 (40 mg) Tablet Oral b.i.d., Lopid 1 (600 mg) Tablet Oral b.i.d., Morphine Sulfate Microinfusion Injection Take as Directed, Nitroglycerin Tablet, sublingual Sublingual PRN, OxyCODONE HCl 1 Tablet (of 10 mg) Oral four times a day PRN, Proscar 1 (5 mg) Tablet Oral at bedtime, Xanax 1 (0.5 mg) Tablet Oral t.i.d. PRN, Zofran 1 (4 mg) Tablet Oral t.i.d. Allergies: Amitriptyline HCl, Neurontin, and TraZODone HCl. Review of Systems: Review of Systems is not available for this patient. Vital Signs: Vitals are not available for this patient. Performance Status: 1 - No physically strenuous activity, but ambulatory and able to carry out light or sedentary work (e.g. office work, light house work). (ECOG) Physical Examination: Respiratory - Patient denies any shortness of breath or wheezing, Cardiovascular - Denies any chest pain or palpitation, Abdomen - Denies any abdominal fullness, Extremities - Denies any lower extremity edema. Lab/Imaging: Test performed on Jul 16, 2020 07:42 WBC 6.3 10 3/uL RBC 3.19 10 6/uL HGB 9.8 g/dL HCT 31.2 % MCV 97.8 fL MCH 30.7 pg MCHC 31.4 g/dL RDW 11.9 % Platelet Count 204 10 3/cmm MPV 11.6 fL Neutrophils 3.04 10 3/uL Lymphocytes 2.0 10 3/uL Monocytes 1.0 10 3/uL Eosinophils 0.2 10 3/uL Basophils 0.0 10 3/uL Neutrophil % 48.2 % Lymphocyte % 31.2 % Monocyte % 16.0 % Eosinophil % 3.5 % Basophils % 0.6 % NRBC % 0 % Impression: 1. Patient with moderately severe anemia. Some component appeared to be due to iron deficiency. Some component of chronic disease anemia also was felt to be likely. Other bone marrow pathology was not excluded. 2. He developed acute renal failure and pancreatitis in association with acute ST elevation myocardial infarction in January 2016. 3. He had associated pancreatic pseudocyst, requiring percutaneous drainage and stent placement. 4. His further management was complicated by Clostridium difficile colitis, but that has improved clinically following treatment with oral vancomycin. His other medical illnesses include: 5. Hypertension. 6. Dyslipidemia. 7. GERD. 8. History of paroxysmal atrial fibrillation. 9. Benign prosthetic hypertrophy with urinary retention. 10. Chronic back pain. 11. Peripheral neuropathy. 12. He has a prior history of anemia, reportedly in association with [place] Spotted Fever. He apparently was given parenteral iron at that time. He completed parenteral iron replacement with infusions of Injectafer on 05/24/2016 and on 05/31/2016. He has had gradual recovery from the pancreatitis and C. difficile colitis. His followup CT scan on 07/27/2016 did show further improvement, and he has continued to show gradual improvement in his performance status. Despite the parenteral iron replacement, his follow-up blood counts have continued to show moderately severe anemia, and he continues to have significantly elevated sedimentation rate. The cause for this remains uncertain. Plan: Discussed with patient and family via telephone about his labs white blood count 7 hemoglobin 9.8 g compared to 9.8 g in June 2020 hematocrit 32 platelets 223,000 with a normal differential Clinically, patient is doing well with no new signs symptoms, CBC shows persistent moderate but stable, well compensated anemia. Patient is on oral iron now causing GI symptoms and constipation and hemoglobin shows no improvement, clinically appears patient has underlying myelodysplasia, discussed about bone marrow evaluation again but patient wants to wait and watch, we will repeat his CBC, B12, reticulocyte count and iron studies in 2 months and plan accordingly. Patient was advised to call us in case there is a new symptoms or progressive weakness or jaundice Signed By: Christa Horne M.D. <<Signature on File>>
== END 2020-10-22 06:00 | disposition home or self-care (01) ==
LOC: ONCMED 06:01
PROVIDERS: PCP Internal Medicine; Visit Provider Internal Medicine Hematology & Oncology
DX: D64.9 Anemia, unspecified (principal); N17.9 Acute kidney failure, unspecified; I25.2 Old myocardial infarction; I10 Essential (primary) hypertension; E78.5 Hyperlipidemia, unspecified; K21.9 Gastro-esophageal reflux disease without esophagitis; I48.91 Unspecified atrial fibrillation; N40.0 Benign prostatic hyperplasia without lower urinary tract symptoms; G89.29 Other chronic pain; M54.5 Low back pain; G62.9 Polyneuropathy, unspecified; Z86.19 Personal history of other infectious and parasitic diseases; Z79.899 Other long term (current) drug therapy
CPT/HCPCS: 99214

== ENCOUNTER → 2020-12-04 09:08 | Outpatient (BNVA) | payer MEDICARE, OTHER, SELFPAY | PROVIDERS: PCP Internal Medicine; Visit Provider Specialist | DX: M41.56 Other secondary scoliosis, lumbar region (principal); G62.9 Polyneuropathy, unspecified; Z87.891 Personal history of nicotine dependence; Z97.8 Presence of other specified devices | CPT/HCPCS: 62370; 99213 ==

== ENCOUNTER 2020-12-16 09:05 | Outpatient (CLI) | payer MEDICARE, OTHER, SELFPAY ==
[2020-12-16 10:43] LABS: Basophils % 0.7 %; Eosinophils # 0.2 10^3/uL (0.0-0.8); Eosinophils % 3.2 %; Hematocrit 30.7 % (42.0-52.0); Hemoglobin 9.7 g/dL (11.7-16.6); Lymphocytes # 1.6 10^3/uL (0.8-4.8); Mean Corpuscular HGB Conc 31.6 g/dL (30.0-36.0); Mean Corpuscular Hemoglobin 30.3 pg (28.0-34.0); Mean Corpuscular Volume 95.9 fL (80-94); Mean Platelet Volume 11.4 fL (7.4-10.4); Monocytes # 0.9 10^3/uL (0.2-0.9); Monocytes % 15.7 %; Neutrophils # 2.91 10^3/uL (1.8-7.7); Neutrophils % 51.3 %; Nucleated Red Blood Cells % 0 %; Platelet Count 202 10^3/cmm (130-400); Red Cell Distribution Width 12.1 % (12.1-15.1); Reticulocyte % 0.9 % (0.5-2.0); White Blood Count 5.7 10^3/uL (4.0-10.0)
[2020-12-16 11:00] LABS: Iron 57 ug/dL (59-158); Percent Saturation 21.2 % (20-50); Total Iron Binding Capacity 268 mcg/dl; Unsaturated Iron Binding 211 ug/dL (112-347)
[2020-12-16 11:15] LABS: Vitamin B12 615 pg/mL (232-1245)
== END 2020-12-16 09:06 | disposition home or self-care (01) ==
LOC: ONCMED 12-17 10:21
PROVIDERS: PCP Internal Medicine; Visit Provider Internal Medicine Hematology & Oncology
DX: D50.9 Iron deficiency anemia, unspecified (principal); D51.9 Vitamin B12 deficiency anemia, unspecified; R53.83 Other fatigue; K85.90 Acute pancreatitis without necrosis or infection, unspecified
CPT/HCPCS: 82607; 83540; 83550; 85025; 85045

== ENCOUNTER 2020-12-18 05:57 | Outpatient (CLI) | payer MEDICARE, OTHER, SELFPAY ==
--- NOTE | 2020-12-18 16:02 | ONC FU_ITS ---
Dr. Horne follow up note Patient: Enrique Monk Unit #: [id number]: 1935 Dicatated By: Christa Horne M.D.Date of Visit:December 18, 2020 Telehealth Progress Note The patient has been informed that the visit may not be secure and acknowledged the information. I have explained the option of participating in a telephone or video visit during the [facility] emergency to the patient. After being given an opportunity to ask questions about and discuss this type of visit, the patient verbally consented to proceeding with the telephone/video visit. the patient understands that this service replaces an office visit and they may be billed and /or responsible for any applicable copayments History of Present Illness: This is an 85 year-old man with moderately severe anemia. He has multiple medical illnesses including hypertension, dyslipidemia, chronic kidney disease, coronary artery disease, and peripheral neuropathy. He also has chronic back pain, for which he has an implanted pain pump. In January 2016 he was hospitalized here with an acute ST elevation myocardial infarction. He developed acute renal failure with it, and he also had acute pancreatitis. He had CT evidence of a large pancreatic pseudocyst. He was transferred to the [facility] where he did undergo drainage of the pseudocyst and placement of a stent. He was readmitted to the hospital here for possible angina equivalent on 02/26/2016. A sestamibi Lexiscan showed no evidence of acute cardiac ischemia, and as such his further cardiac evaluation was deferred to outpatient management. However, in the meantime, his laboratory studies did show that he was significantly anemic with his initial CBC showing hemoglobin 7.9 g and hematocrit 24.6%. The red cell indices were slightly macrocytic. The white blood cell count was slightly elevated at 11,400, but that was significantly down compared to studies in January. The platelet count was normal at 328,000. Comprehensive metabolic profile showed elevated BUN/creatinine creatinine at 31 and 2.2 mg/dL. Albumin was low at 2.4 g/dL. Liver enzymes were normal. His B12 level was high at 1881 pg/mL. Serum iron studies showed low transferrin saturation of 12%. Ferritin was high normal at 376 ng/mL. Serum protein electrophoresis showed hypoalbuminemia and decreased total protein. There was no monoclonal protein detected. He did receive a transfusion of 1 unit of packed red blood cells on 02/27/2016. initially on 03/10/2016. CBC at that time showed hemoglobin 8.9 g with white count 12,700 and platelet count 335,000. The uncorrected reticulocyte count was 2.3%. Sedimentation rate was greater than 120 mm/hour. CRP also was elevated at 9.650 mg/dL. Chem profile showed BUN elevated at 35 mg/dL with creatinine 2.6 mg/dL, and those had increased compared to 2 weeks earlier. Alkaline phosphatase was slightly elevated 135/117 IU/L, but with normal bilirubin of 0.3 mg/dL. The other liver enzymes were normal. The serum iron was low at 22 mcg/dL with transferrin saturation 6.4%. Ferritin elevated at 483 ng/mL. A repeat protein electrophoresis showed increased alpha 1 globulin, consistent with acute phase reactive process. He was readmitted to the hospital on 03/27/2016 with acute renal failure. CT abdomen/pelvis at that time showed evidence of new acute pancolitis and loculated enhancing gas and fluid collection along the medial caudal margin of the pancreatic head. There was evidence of new acute right L3 transverse process fracture. He was found to have Clostridium difficile colitis, treated with metronidazole. He was admitted again on 04/27/2016 with persistent diarrhea and stool positive for C. difficile. He was then treated with oral vancomycin. He was then given parenteral iron replacement with infusions of Injectafer on 05/24/2016 and again on 05/31/2016. A repeat CT scan performed 05/26/16 showed new pneumobilia and air within the gallbladder lumen since 03/26/2016. There was residual but improving changes of pancreatitis and pseudocyst formation. The gallbladder was mildly hydropic with diffusely thickened wall, likely on the basis of the patient's known chronic pancreatic disease and adjacent inflammatory process. He returned to the [facility] on 06/22/2016 for removal of his pancreatic stent. A repeat CT of the abdomen/pelvis on 07/27/2016 showed decrease in size of residual pancreatic head fluid collection. There was no radiographic evidence of residual pancreatitis. There was resolved pneumobilia and gallbladder distention since 05/26/2016. His CBC at that time still showed moderately severe anemia with hemoglobin 9.4 g. The red cell indices were borderline macrocytic. His transferrin saturation was 21%. Sedimentation rate was still significantly elevated at 89 mm/hour. Evaluated via telemedicine,Denies any specific complaints, no fever or chills, no nausea or vomiting, no melena or hematochezia, no hemoptysis or hematemesis, no dysphagia, no abdominal pain, no jaundice, no shortness of breath or dyspnea on exertion, no hematuria, no palpitation. Medications: Acidophilus 1 Tablet Oral daily, ClonazePAM 1 Tablet Oral at bedtime, Flomax 1 (0.4 mg) Capsule Oral daily, Lasix 1 (40 mg) Tablet Oral b.i.d., Lopid 1 (600 mg) Tablet Oral b.i.d., Morphine Sulfate Microinfusion Injection Take as Directed, Nitroglycerin Tablet, sublingual Sublingual PRN, OxyCODONE HCl 1 Tablet (of 10 mg) Oral four times a day PRN, Proscar 1 (5 mg) Tablet Oral at bedtime, Xanax 1 (0.5 mg) Tablet Oral t.i.d. PRN, Zofran 1 (4 mg) Tablet Oral t.i.d. Allergies: Amitriptyline HCl, Neurontin, and TraZODone HCl. Review of Systems: Review of Systems is not available for this patient. Vital Signs: Vitals are not available for this patient. Performance Status: 1 - No physically strenuous activity, but ambulatory and able to carry out light or sedentary work (e.g. office work, light house work). (ECOG) Physical Examination: ENMT - Denies any mouth sores, denies any jaundice, Respiratory - Denies any shortness of breath or wheezing, Cardiovascular - Denies any palpitation or tachycardia, Abdomen - Denies any abdominal pain, Extremities - Denies any lower extremity edema. Lab/Imaging: Test performed on Jul 16, 2020 07:42 WBC 6.3 10 3/uL RBC 3.19 10 6/uL HGB 9.8 g/dL HCT 31.2 % MCV 97.8 fL MCH 30.7 pg MCHC 31.4 g/dL RDW 11.9 % Platelet Count 204 10 3/cmm MPV 11.6 fL Neutrophils 3.04 10 3/uL Lymphocytes 2.0 10 3/uL Monocytes 1.0 10 3/uL Eosinophils 0.2 10 3/uL Basophils 0.0 10 3/uL Neutrophil % 48.2 % Lymphocyte % 31.2 % Monocyte % 16.0 % Eosinophil % 3.5 % Basophils % 0.6 % NRBC % 0 % Impression: 1. Patient with moderately severe anemia. Some component appeared to be due to iron deficiency. Some component of chronic disease anemia also was felt to be likely. Other bone marrow pathology was not excluded. 2. He developed acute renal failure and pancreatitis in association with acute ST elevation myocardial infarction in January 2016. 3. He had associated pancreatic pseudocyst, requiring percutaneous drainage and stent placement. 4. His further management was complicated by Clostridium difficile colitis, but that has improved clinically following treatment with oral vancomycin. His other medical illnesses include: 5. Hypertension. 6. Dyslipidemia. 7. GERD. 8. History of paroxysmal atrial fibrillation. 9. Benign prosthetic hypertrophy with urinary retention. 10. Chronic back pain. 11. Peripheral neuropathy. 12. He has a prior history of anemia, reportedly in association with [place] Spotted Fever. He apparently was given parenteral iron at that time. He completed parenteral iron replacement with infusions of Injectafer on 05/24/2016 and on 05/31/2016. He has had gradual recovery from the pancreatitis and C. difficile colitis. His followup CT scan on 07/27/2016 did show further improvement, and he has continued to show gradual improvement in his performance status. Despite the parenteral iron replacement, his follow-up blood counts have continued to show moderately severe anemia, and he continues to have significantly elevated sedimentation rate. The cause for this remains uncertain. 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 Signed By: Christa Horne M.D. <<Signature on File>>
== END 2020-12-18 05:58 | disposition home or self-care (01) ==
LOC: ONCMED 06:02
PROVIDERS: PCP Internal Medicine; Visit Provider Internal Medicine Hematology & Oncology
DX: D50.9 Iron deficiency anemia, unspecified (principal); N17.9 Acute kidney failure, unspecified; K85.90 Acute pancreatitis without necrosis or infection, unspecified; I50.9 Heart failure, unspecified; I10 Essential (primary) hypertension; E78.5 Hyperlipidemia, unspecified; K21.9 Gastro-esophageal reflux disease without esophagitis; I48.0 Paroxysmal atrial fibrillation; N40.1 Benign prostatic hyperplasia with lower urinary tract symptoms; R33.8 Other retention of urine; G89.29 Other chronic pain; M54.5 Low back pain; G62.9 Polyneuropathy, unspecified; Z86.19 Personal history of other infectious and parasitic diseases; Z79.899 Other long term (current) drug therapy
CPT/HCPCS: 99214

== ENCOUNTER 2021-02-16 12:58 | Outpatient (CLI) | payer MEDICARE, OTHER, SELFPAY ==
[2021-02-16 13:39] LABS: Basophils # 0.1 10^3/uL (0.0-0.1); Basophils % 0.8 %; Eosinophils # 0.1 10^3/uL (0.0-0.8); Hematocrit 29.9 % (42.0-52.0); Hemoglobin 9.5 g/dL (11.7-16.6); Lymphocytes # 1.5 10^3/uL (0.8-4.8); Lymphocytes % 23.3 %; Mean Corpuscular HGB Conc 31.8 g/dL (30.0-36.0); Mean Corpuscular Hemoglobin 30.3 pg (28.0-34.0); Mean Corpuscular Volume 95.2 fL (80-94); Mean Platelet Volume 11.5 fL (7.4-10.4); Monocytes # 0.8 10^3/uL (0.2-0.9); Monocytes % 12.6 %; Neutrophils # 3.99 10^3/uL (1.8-7.7); Neutrophils % 60.2 %; Nucleated Red Blood Cells % 0 %; Platelet Count 183 10^3/cmm (130-400); Red Blood Count 3.14 10^6/uL (4.1-5.3); Red Cell Distribution Width 12.2 % (12.1-15.1); White Blood Count 6.6 10^3/uL (4.0-10.0)
[2021-02-16 14:09] LABS: Anion Gap 17.5 (5-19); Blood Urea Nitrogen 46 mg/dL (8-23); Calcium 8.7 mg/dL (8.5-10.5); Carbon Dioxide 25 mmol/L (22-29); Chloride 101 mmol/L (98-107); Glucose 167 mg/dL (65-115); Iron 49 ug/dL (59-158); Percent Saturation 18.7 % (20-50); Phosphorus 3.2 mg/dL (2.5-4.5); Potassium 4.5 mmol/L (3.5-5.1); Sodium 139 mmol/L (136-145); Total Iron Binding Capacity 261 mcg/dl; Unsaturated Iron Binding 212 ug/dL (112-347)
[2021-02-16 14:24] LABS: 25 Hydroxy Vitamin D 54 ng/mL (30-100)
[2021-02-16 18:39] LABS: Creatinine Urine, Random 58 mg/dL (39-259); Microalbum Creatinine Ratio Ur 34 mg/dL (0-20); Microalbumin Random Urine 2 ug/dL (0-20)
== END 2021-02-16 12:59 | disposition home or self-care (01) ==
PROVIDERS: Absent Provider Internal Medicine Hematology & Oncology; PCP Internal Medicine; Visit Provider Internal Medicine Nephrology
DX: N18.4 Chronic kidney disease, stage 4 (severe) (principal)
CPT/HCPCS: 36415; 80069; 82044; 82306; 83540; 83550; 85025

== ENCOUNTER 2021-03-25 09:02 | Outpatient (CLI) | payer MEDICARE, OTHER, SELFPAY ==
[2021-03-25 09:40] LABS: Basophils % 0.6 %; Eosinophils # 0.2 10^3/uL (0.0-0.8); Eosinophils % 3.3 %; Hematocrit 30.7 % (42.0-52.0); Hemoglobin 9.8 g/dL (11.7-16.6); Lymphocytes # 1.7 10^3/uL (0.8-4.8); Lymphocytes % 25.7 %; Mean Corpuscular HGB Conc 31.9 g/dL (30.0-36.0); Mean Corpuscular Hemoglobin 31.6 pg (28.0-34.0); Monocytes % 15.2 %; Neutrophils # 3.48 10^3/uL (1.8-7.7); Nucleated Red Blood Cells % 0 %; Platelet Count 188 10^3/cmm (130-400); Red Cell Distribution Width 12.3 % (12.1-15.1); White Blood Count 6.5 10^3/uL (4.0-10.0)
[2021-03-25 10:24] LABS: Ferritin 890 ng/mL (30-400); Iron 46 ug/dL (59-158); Percent Saturation 17.2 % (20-50); Total Iron Binding Capacity 266 mcg/dl; Unsaturated Iron Binding 220 ug/dL (112-347)
== END 2021-03-25 09:03 | disposition home or self-care (01) ==
LOC: ONCMED 09:07
PROVIDERS: PCP Internal Medicine; Visit Provider Internal Medicine Hematology & Oncology
DX: D64.9 Anemia, unspecified (principal)
CPT/HCPCS: 36415; 82728; 83540; 83550; 85025

== ENCOUNTER → 2021-03-26 09:59 | Outpatient (BNVA) | payer MEDICARE, OTHER, SELFPAY | PROVIDERS: PCP Internal Medicine; Visit Provider Specialist | DX: M41.56 Other secondary scoliosis, lumbar region (principal); G62.9 Polyneuropathy, unspecified; G25.81 Restless legs syndrome; E50.9 Vitamin A deficiency, unspecified; Z97.8 Presence of other specified devices | CPT/HCPCS: 62370; 99214 ==

== ENCOUNTER 2021-04-03 06:08 | Outpatient (CLI) | payer MEDICARE, OTHER, SELFPAY ==
[2021-04-03] MEDS: sodium chloride 0.9% 100 mL Bag IV (10:40)
[2021-04-03] MEDS: ferric carboxy (PYXIS) 750 mg/15 mL INJ IV (10:40)
== END 2021-04-03 06:09 | disposition home or self-care (01) ==
LOC: ONCMED 06:09
PROVIDERS: PCP Internal Medicine; Visit Provider Internal Medicine Hematology & Oncology
DX: D50.9 Iron deficiency anemia, unspecified (principal); Z79.899 Other long term (current) drug therapy
CPT/HCPCS: 96365; J1439

== ENCOUNTER 2021-04-10 05:51 | Outpatient (CLI) | payer MEDICARE, OTHER, SELFPAY ==
[2021-04-10] MEDS: ferric carboxy (IVPB) 750 MG in sodium chloride 0.9% (100 ml) 100 ML 460 MG IV (10:00)
== END 2021-04-10 05:52 | disposition home or self-care (01) ==
LOC: ONCMED 05:52
PROVIDERS: PCP Internal Medicine; Visit Provider Internal Medicine Hematology & Oncology
DX: D50.9 Iron deficiency anemia, unspecified (principal)
CPT/HCPCS: 96365; J1439

== ENCOUNTER 2021-06-15 14:31 | Outpatient (CLI) | payer MEDICARE, OTHER, SELFPAY ==
[2021-06-15 15:09] LABS: Basophils % 0.5 %; Eosinophils # 0.2 10^3/uL (0.0-0.8); Eosinophils % 1.9 %; Hematocrit 31.8 % (42.0-52.0); Hemoglobin 10.9 g/dL (11.7-16.6); Lymphocytes # 1.6 10^3/uL (0.8-4.8); Lymphocytes % 18.4 %; Mean Corpuscular HGB Conc 34.3 g/dL (30.0-36.0); Mean Corpuscular Hemoglobin 33.1 pg (28.0-34.0); Mean Corpuscular Volume 96.7 fl (80-94); Monocytes # 0.9 10^3/uL (0.2-0.9); Monocytes % 10.1 %; Neutrophils % 68.4 %; Nucleated Red Blood Cells % 0 %; Platelet Count 193 10^3/cmm (130-400); Red Blood Count 3.29 10^6/uL (4.1-5.3); White Blood Count 8.6 10^3/uL (4.0-10.0)
[2021-06-15 15:48] LABS: Iron 69 ug/dL (59-158); Percent Saturation 27.4 % (20-50); Total Iron Binding Capacity 251 mcg/dl; Unsaturated Iron Binding 182 ug/dL (112-347)
[2021-06-15 16:01] LABS: Ferritin 2009 ng/mL (30-400)
--- NOTE | 2021-06-15 17:02 | ONC FU_ITS ---
Dr. Horne follow up note Patient: Enrique Monk Unit #: [id number]: 1935 Dicatated By: Christa Horne M.D.Date of Visit:Jun 15, 2021 Onc Med Follow-up/Prog Note History of Present Illness: This is an 85 year-old man with moderately severe anemia. He has multiple medical illnesses including hypertension, dyslipidemia, chronic kidney disease, coronary artery disease, and peripheral neuropathy. He also has chronic back pain, for which he has an implanted pain pump. In January 2016 he was hospitalized here with an acute ST elevation myocardial infarction. He developed acute renal failure with it, and he also had acute pancreatitis. He had CT evidence of a large pancreatic pseudocyst. He was transferred to the [facility] where he did undergo drainage of the pseudocyst and placement of a stent. He was readmitted to the hospital here for possible angina equivalent on 02/26/2016. A sestamibi Lexiscan showed no evidence of acute cardiac ischemia, and as such his further cardiac evaluation was deferred to outpatient management. However, in the meantime, his laboratory studies did show that he was significantly anemic with his initial CBC showing hemoglobin 7.9 g and hematocrit 24.6%. The red cell indices were slightly macrocytic. The white blood cell count was slightly elevated at 11,400, but that was significantly down compared to studies in January. The platelet count was normal at 328,000. Comprehensive metabolic profile showed elevated BUN/creatinine creatinine at 31 and 2.2 mg/dL. Albumin was low at 2.4 g/dL. Liver enzymes were normal. His B12 level was high at 1881 pg/mL. Serum iron studies showed low transferrin saturation of 12%. Ferritin was high normal at 376 ng/mL. Serum protein electrophoresis showed hypoalbuminemia and decreased total protein. There was no monoclonal protein detected. He did receive a transfusion of 1 unit of packed red blood cells on 02/27/2016. Injectafer 750 mg weekly x2 in March 2021 with good response initially on 03/10/2016. CBC at that time showed hemoglobin 8.9 g with white count 12,700 and platelet count 335,000. The uncorrected reticulocyte count was 2.3%. Sedimentation rate was greater than 120 mm/hour. CRP also was elevated at 9.650 mg/dL. Chem profile showed BUN elevated at 35 mg/dL with creatinine 2.6 mg/dL, and those had increased compared to 2 weeks earlier. Alkaline phosphatase was slightly elevated 135/117 IU/L, but with normal bilirubin of 0.3 mg/dL. The other liver enzymes were normal. The serum iron was low at 22 mcg/dL with transferrin saturation 6.4%. Ferritin elevated at 483 ng/mL. A repeat protein electrophoresis showed increased alpha 1 globulin, consistent with acute phase reactive process. He was readmitted to the hospital on 03/27/2016 with acute renal failure. CT abdomen/pelvis at that time showed evidence of new acute pancolitis and loculated enhancing gas and fluid collection along the medial caudal margin of the pancreatic head. There was evidence of new acute right L3 transverse process fracture. He was found to have Clostridium difficile colitis, treated with metronidazole. He was admitted again on 04/27/2016 with persistent diarrhea and stool positive for C. difficile. He was then treated with oral vancomycin. He was then given parenteral iron replacement with infusions of Injectafer on 05/24/2016 and again on 05/31/2016. A repeat CT scan performed 05/26/16 showed new pneumobilia and air within the gallbladder lumen since 03/26/2016. There was residual but improving changes of pancreatitis and pseudocyst formation. The gallbladder was mildly hydropic with diffusely thickened wall, likely on the basis of the patient's known chronic pancreatic disease and adjacent inflammatory process. He returned to the [facility] on 06/22/2016 for removal of his pancreatic stent. A repeat CT of the abdomen/pelvis on 07/27/2016 showed decrease in size of residual pancreatic head fluid collection. There was no radiographic evidence of residual pancreatitis. There was resolved pneumobilia and gallbladder distention since 05/26/2016. His CBC at that time still showed moderately severe anemia with hemoglobin 9.4 g. The red cell indices were borderline macrocytic. His transferrin saturation was 21%. Sedimentation rate was still significantly elevated at 89 mm/hour. Status post Injectafer 750 mg intravenously x2 in March 2021 for iron deficiency anemia Came for follow-up, feeling somewhat better but denies any melena or hematochezia denies any hemoptysis or hematemesis denies any jaundice denies any shortness of breath or chest pain at rest. Tolerated parenteral iron well, feeling somewhat better Medications: Acidophilus 1 Tablet Oral daily, ClonazePAM 1 Tablet Oral at bedtime, Flomax 1 (0.4 mg) Capsule Oral daily, Lasix 1 (40 mg) Tablet Oral b.i.d., Lopid 1 (600 mg) Tablet Oral b.i.d., Morphine Sulfate Microinfusion Injection Take as Directed, Nitroglycerin Tablet, sublingual Sublingual PRN, OxyCODONE HCl 1 Tablet (of 10 mg) Oral four times a day PRN, Proscar 1 (5 mg) Tablet Oral at bedtime, Xanax 1 (0.5 mg) Tablet Oral t.i.d. PRN, Zofran 1 (4 mg) Tablet Oral t.i.d. Allergies: Amitriptyline HCl, Neurontin, and TraZODone HCl. Review of Systems: Review of Systems is not available for this patient. Vital Signs: Performed on Jun 15, 2021 16:23 Height - 69.00 in Weight - 161.6 lbs (LOW) BSA - 1.89 sq.m BMI - 23.86 Temperature - 99.0 F (HIGH) Pulse - 72 /min Respiration - 16 /min BP - 143/78 mm(hg) (HIGH) O2 Sat - 96 % Pain - 8 Fatigue - 5 Performance Status: 2 - Ambulatory/capable of all self-care, unable to perform any work activities. Up and about more than 50% of waking hours. (ECOG) Physical Examination: ENMT - No mouth sores, no thrush, no jaundice, Respiratory - Poor air entry otherwise clear, Cardiovascular - Regular rate and rhythm of heart, Abdomen - Soft, bowel sounds present, Extremities - 1+ edema bilaterally. Lab/Imaging: Test performed on Feb 16, 2021 13:45 Glucose 167 mg/dL Iron 49 mcg/dL Vitamin D (25-Hydroxy), Total 54 ng/mL BUN 46 mg/dL Iron Binding Capacity (TIBC) 261 mcg/dL % Iron Saturation 18.7 % Creatinine 1.9 mg/dL Cr Clearance (Est) 32.79 mL/min UIBC 212 mcg/dL Sodium 139 mmol/L Potassium 4.5 mmol/L Chloride 101 mmol/L CO2 25 mmol/L Anion Gap 17.5 Calcium 8.7 mg/dL Phosphorus 3.2 mg/dL Albumin 4.0 g/dL Test performed on Feb 16, 2021 13:14 WBC 6.6 10^3/uL RBC 3.14 10^6/uL HGB 9.5 g/dL HCT 29.9 % MCV 95.2 fl MCH 30.3 pg MCHC 31.8 g/dL RDW 12.2 % Platelet Count 183 10^3/uL MPV 11.5 fl Neutrophils 3.99 10^3/uL Lymphocytes 1.5 10^3/uL Monocytes 0.8 10^3/uL Eosinophils 0.1 10^3/uL Basophils 0.1 10^3/uL Neutrophil % 60.2 % Lymphocyte % 23.3 % Monocyte % 12.6 % Eosinophil % 2.0 % Basophils % 0.8 % Impression: 1. Patient with moderately severe anemia. Some component appeared to be due to iron deficiency. Some component of chronic disease anemia also was felt to be likely. Other bone marrow pathology was not excluded. 2. He developed acute renal failure and pancreatitis in association with acute ST elevation myocardial infarction in January 2016. 3. He had associated pancreatic pseudocyst, requiring percutaneous drainage and stent placement. 4. His further management was complicated by Clostridium difficile colitis, but that has improved clinically following treatment with oral vancomycin. His other medical illnesses include: 5. Hypertension. 6. Dyslipidemia. 7. GERD. 8. History of paroxysmal atrial fibrillation. 9. Benign prosthetic hypertrophy with urinary retention. 10. Chronic back pain. 11. Peripheral neuropathy. 12. He has a prior history of anemia, reportedly in association with [place] Spotted Fever. He apparently was given parenteral iron at that time. He completed parenteral iron replacement with infusions of Injectafer on 05/24/2016 and on 05/31/2016. He has had gradual recovery from the pancreatitis and C. difficile colitis. His followup CT scan on 07/27/2016 did show further improvement, and he has continued to show gradual improvement in his performance status. Despite the parenteral iron replacement, his follow-up blood counts have continued to show moderately severe anemia, and he continues to have significantly elevated sedimentation rate. The cause for this remains uncertain. Plan: Discussed with patient regarding his labs white blood count 8.6 hemoglobin 10.9 g compared to 9.8 g prior to Injectafer infusion hematocrit 31.8 platelets 193,000 iron studies shows iron saturation 27.4% compared to 17.2% prior to Injectafer infusion iron 69 compared to 46 previously Clinically, patient is doing reasonably well, his follow-up labs shows improvement in his anemia after parenteral iron, his anemia appears multifactorial including possibility of underlying myelodysplasia. Overall, patient is feeling well after Injectafer infusion, will continue to monitor, we will repeat his CBC in 3 months, patient prefer telemedicine. Signed By: Christa Horne M.D. <<Signature on File>>
== END 2021-06-15 14:32 | disposition home or self-care (01) ==
LOC: ONCMED 14:35
PROVIDERS: PCP Internal Medicine; Visit Provider Internal Medicine Hematology & Oncology
DX: D50.9 Iron deficiency anemia, unspecified (principal); I25.2 Old myocardial infarction; I10 Essential (primary) hypertension; E78.5 Hyperlipidemia, unspecified; K21.9 Gastro-esophageal reflux disease without esophagitis; I48.0 Paroxysmal atrial fibrillation; N40.1 Benign prostatic hyperplasia with lower urinary tract symptoms; R33.9 Retention of urine, unspecified; M54.50 Low back pain, unspecified; G89.29 Other chronic pain; G62.9 Polyneuropathy, unspecified; Z86.19 Personal history of other infectious and parasitic diseases; Z79.899 Other long term (current) drug therapy
CPT/HCPCS: 36415; 82728; 83540; 83550; 85025; 99214

== ENCOUNTER → 2021-07-09 08:59 | Outpatient (BNVA) | payer MEDICARE, OTHER, SELFPAY | PROVIDERS: PCP Internal Medicine; Visit Provider Specialist | DX: M54.9 Dorsalgia, unspecified (principal); Z96.89 Presence of other specified functional implants | CPT/HCPCS: 62370; 99213 ==

== ENCOUNTER 2021-09-21 09:21 | Outpatient (CLI) | payer MEDICARE, OTHER, SELFPAY ==
[2021-09-21 10:01] LABS: Basophils # 0.1 10^3/uL (0.0-0.1); Basophils % 0.8 %; Eosinophils # 0.2 10^3/uL (0.0-0.8); Eosinophils % 3.1 %; Hemoglobin 10.1 g/dL (11.7-16.6); Lymphocytes # 1.5 10^3/uL (0.8-4.8); Lymphocytes % 24.2 %; Mean Corpuscular HGB Conc 32.6 g/dL (30.0-36.0); Mean Corpuscular Hemoglobin 32.5 pg (28.0-34.0); Mean Corpuscular Volume 99.7 fl (80-94); Mean Platelet Volume 11.1 fL (7.4-10.4); Monocytes # 0.8 10^3/uL (0.2-0.9); Monocytes % 13.2 %; Neutrophils # 3.57 10^3/uL (1.8-7.7); Neutrophils % 57.4 %; Nucleated Red Blood Cells % 0 %; Platelet Count 180 10^3/cmm (130-400); Red Blood Count 3.11 10^6/uL (4.1-5.3); Red Cell Distribution Width 11.9 % (12.1-15.1); White Blood Count 6.2 10^3/uL (4.0-10.0)
== END 2021-09-21 09:22 | disposition home or self-care (01) ==
PROVIDERS: PCP Internal Medicine; Visit Provider Internal Medicine Hematology & Oncology
DX: D64.9 Anemia, unspecified (principal)
CPT/HCPCS: 36415; 85025

== ENCOUNTER → 2021-10-22 09:42 | Outpatient (BNVA) | payer MEDICARE, OTHER, SELFPAY | PROVIDERS: PCP Internal Medicine; Visit Provider Specialist | DX: M41.56 Other secondary scoliosis, lumbar region (principal); G62.9 Polyneuropathy, unspecified; Z96.89 Presence of other specified functional implants | CPT/HCPCS: 62370; 99213 ==

== ENCOUNTER 2021-12-30 14:15 | Outpatient (CLI) | payer MEDICARE, OTHER, SELFPAY ==
[2021-12-30 15:14] LABS: Basophils # 0.1 10^3/uL (0.0-0.1); Basophils % 0.7 %; Eosinophils # 0.2 10^3/uL (0.0-0.8); Eosinophils % 2.8 %; Hematocrit 29.5 % (42.0-52.0); Lymphocytes # 2.1 10^3/uL (0.8-4.8); Lymphocytes % 31.1 %; Mean Corpuscular HGB Conc 33.9 g/dL (30.0-36.0); Mean Corpuscular Hemoglobin 32.3 pg (28.0-34.0); Mean Corpuscular Volume 95.2 fl (80-94); Mean Platelet Volume 11.5 fL (7.4-10.4); Monocytes # 0.9 10^3/uL (0.2-0.9); Monocytes % 12.8 %; Neutrophils # 3.53 10^3/uL (1.8-7.7); Neutrophils % 51.7 %; Nucleated Red Blood Cells % 0 %; Platelet Count 170 10^3/cmm (130-400); White Blood Count 6.8 10^3/uL (4.0-10.0)
== END 2021-12-30 14:16 | disposition home or self-care (01) ==
LOC: LAB 14:18
PROVIDERS: PCP Internal Medicine; Visit Provider Internal Medicine Hematology & Oncology
DX: D64.9 Anemia, unspecified (principal)
CPT/HCPCS: 85025

== ENCOUNTER 2022-01-01 11:22 | Oncology outpatient (recurring) (ONCR) | payer MEDICARE, OTHER, SELFPAY | END 2022-01-21 23:59 | disposition home or self-care (01) | LOC: ONCMED 11:27 | PROVIDERS: PCP Internal Medicine; Visit Provider Internal Medicine Hematology & Oncology | DX: Z53.9 Procedure and treatment not carried out, unspecified reason (principal) ==

== ENCOUNTER → 2022-02-09 09:39 | Outpatient (BNVA) | payer MEDICARE, OTHER, SELFPAY | PROVIDERS: PCP Internal Medicine; Visit Provider Specialist | DX: M54.9 Dorsalgia, unspecified (principal); G62.9 Polyneuropathy, unspecified; Z45.1 Encounter for adjustment and management of infusion pump; T85.615A Breakdown (mechanical) of other nervous system device, implant or graft, initial encounter; Z96.89 Presence of other specified functional implants; Z79.891 Long term (current) use of opiate analgesic | CPT/HCPCS: 62370; 99214 ==